=== PATIENT | female | born 1950 | race Caucasian/White ===

== ENCOUNTER 2018-11-18 00:16 | Emergency (ER) | payer OTHER, MEDICARE ==
[~2018-11-18] VITALS: Ht 157.5 cm; Wt 71.2 kg
[~2018-11-18 00:16] MED LIST: ASPIRIN81 MG PO; CRESTOR10 MG PO; FARXIGA PO; GLYBURIDE-METF1 EAC3 PO; LYRICA25 MG PO; LYRICA75 MG PO; METFORMIN HCL500 MG PO; METFORMIN HYDR500 GM; METOPROLOL SUCC25 MG PO; Rosuvastatin Calcium PO; VICTOZA 2-0.6 MG/0.1; Z.0.CRESTOR20 MG PO; Z.0.CRESTOR5 MG; Z.0.LYRICA200 MG PO; Z.0.LYRICA50 MG; ZOLOFT100 MG PO; ZOLOFT50 MG PO
--- OUTSIDE RECORDS SUMMARY | 2018-11-18 00:19 | XMS REPORT | Continuity of Care Document ---
Author Author [facility] Interface Address Unknown Phone Unavailable Problems Problem Status Onset Date Classification Date Reported Comments Source DM w/o complication type II, uncontrolled Active Problem 09/21/2018 [facility] Hyperlipidemia Active Diagnosis 07/26/2017 [facility] History of [place] Active Problem 09/21/2018 [facility] Thrombocytopenia Active Problem 09/21/2018 [facility] Coronary artery disease involving tangirnaq coronary artery of tangirnaq heart, angina presence unspecified Active Problem 09/21/2018 [facility] Depression, unspecified depression type Active Problem 09/21/2018 [facility] Diabetic polyneuropathy associated with type 2 diabetes mellitus Active Problem 09/21/2018 [facility] Other and unspecified hyperlipidemia Active Problem 09/21/2018 [facility] Type II diabetes mellitus, uncontrolled Active Problem 05/11/2015 [facility] Depression Active Problem 05/11/2015 [facility] History of [place] Active Problem 05/11/2015 [facility] Obesity Active Problem 05/11/2015 [facility] Neuropathy Active Problem 05/11/2015 [facility] CAD Active Problem 05/11/2015 [facility] Asymptomatic postmenopausal estrogen deficiency Active Diagnosis 05/17/2017 [facility] Encntr for general adult medical exam w/o abnormal findings Active Diagnosis 05/17/2017 [facility] Screening for breast cancer Active Diagnosis 05/17/2017 [facility] Abnormal urine color Active Diagnosis 10/07/2016 [facility] Left shoulder pain, unspecified chronicity Active Diagnosis 10/07/2016 [facility] Dupuytren contracture Active Problem 09/21/2018 [facility] UTI symptoms Active Diagnosis 08/30/2018 [facility] Vaginal yeast infection Active Diagnosis 08/30/2018 [facility] Medications Medication Details Route Status Patient Instructions Ordering Provider Order Date Source Victoza as directed Subcutaneous Active 18 MG/3ML Subcutaneous begin 0.6 mg SC once daily x 2 weeks, 1.2 mg SC QD x 2 weeks [place] 09/28/2018 [facility] Metronidazole 1 tablet Orally Active 500 mg Orally Twice a day Travon 09/10/2018 [facility] Diflucan 1 tablet Orally Active 150 MG Orally QD x 1 repeat in 2-3 days if symptoms persist [place] 08/29/2018 [facility] Zoloft 1 tablet by mouth Active 100 MG by mouth Once a day Travon 12/03/2017 [facility] Victoza 1.8 mg Subcutaneous Active 18 MG/3ML Subcutaneous Once a day Augustina 11/11/2017 [facility] Victoza 1.8 mg Subcutaneous Active 18 MG/3ML Subcutaneous Once a day [place] 08/23/2017 [facility] Bactrim DS 1 tablet Orally Active 800-160 MG Orally Twice a day [place] 10/05/2016 [facility] Victoza 1.8 ml Subcutaneous Active 18 MG/3ML Subcutaneous Once a day [place] 06/27/2015 [facility] Victoza 1.8 ml Subcutaneous Active 18 MG/3ML Subcutaneous Once a day Ghebranious 06/09/2015 [facility] Farxiga 1 tablet Orally Active 5 MG Orally Once a day [facility] 03/29/2015 [facility] Victoza 0.2 ml Subcutaneous Active 18 MG/3ML Subcutaneous Once a day [facility] 03/23/2015 [facility] Viibryd as directed Orally Active 10 & 20 & 40 MG Orally [place] 12/23/2014 [facility] BD Pen Needle Rachelle U/F as directed SQ Active 32G X 4 MM SQ once a day [place] 12/23/2014 [facility] BD Pen Needle Rachelle U/F as directed SQ Active 32G X 4 MM SQ once a day [place] 12/23/2014 [facility] Viibryd as directed Orally Active 10 & 20 & 40 MG Orally [place] 12/23/2014 [facility] Pantoprazole Sodium 1 tablet Orally Active 40 mg Orally Once a day [place] 04/25/2013 [facility] Metoprolol Succinate ER 1 tablet Orally Active 25 MG Orally Once a day [facility] Lisinopril 1 tablet Orally Active 2.5 MG Orally Once a day [facility] Clopidogrel Bisulfate 1 tablet Orally Active 75 mg Orally Once a day [facility] Crestor take 1 tablet by mouth every day Orally Active 20 Milligram Orally Once a day [facility] Lyrica 1 capsule Orally Active 200 MG Orally three times a day (tid) [facility] Zoloft 2 tablets Orally Active 50 mg Orally Once a day [facility] Lyrica 1 capsule Orally Active 200 MG Orally three times a day (tid) [facility] Metformin HCl 1 tablet Orally Active 500 mg Orally twice a day [facility] Aspir-81 1 tablet Orally Active 81 MG Orally Once a day [facility] Paroxetine HCl 1 tablet in the morning Orally Active 10 MG Orally Once a day [facility] Folic Acid 1 tablet Orally Active 400 MCG Orally Once a day [facility] Vitamin D 1 tablet Orally Active 1000 UNIT Orally Once a day [facility] Zoloft 1 tablet Orally Active 100 MG Orally once a day [facility] Metoprolol Succinate ER 1 tablet Orally Active 25 MG Orally Once a day [facility] Folic Acid 1 tablet Orally Active 400 MCG Orally Once a day [facility] Clopidogrel Bisulfate 1 tablet Orally Active 75 MG Orally Once a day [facility] Vitamin D 1 tablet Orally Active 1000 UNIT Orally Once a day [facility] Paroxetine HCl 1 tablet in the morning Orally Active 10 MG Orally Once a day [facility] Aspir-81 1 tablet Orally Active 81 MG Orally Once a day [facility] Zoloft 1 tablet Orally Active 50 MG Orally 1 tablet PO QD x 1 week, increase to 2 tablet PO QD x 3 week [facility] Lisinopril 1 tablet Orally Active 2.5 MG Orally Once a day [facility] Metformin HCl 1 tablet Orally Active 500 mg Orally twice a day Travon [facility] Victoza 1.8 mg Subcutaneous Active 18 MG/3ML Subcutaneous Once a day Travon [facility] Lisinopril 1 tablet Orally Active 5 MG Orally Once a day Ari [facility] Paxil 1 tablet in the morning Orally No Longer Active 10 MG Orally Once a day Ari [facility] Aspirin EC TAKE 1 TABLET BY MOUTH DAILY NA Active 325 MG Ari [facility] Glyburide-Metformin 2 tablet with a meal Orally Active 5-500 MG Orally daily am Ari [facility] Atenolol TAKE 1 TABLET BY MOUTH DAILY NA Active 25 mg Ari [facility] Farxiga 1 tablet Orally Active 5 MG Orally Once a day Ari [facility] Metoprolol Succinate ER take 1 tablet by mouth every day NA Active 25 MG Travon [facility] Allergies, Adverse Reactions, Alerts Substance Category Reaction Severity Reaction type Status Date Reported Comments Source Avelox Adverse Reaction swelling Adverse Reaction Active 08/29/2018 [facility] Immunizations Immunization Date Given Site Status Last Updated Comments Source Results Order Name Results Value Reference Range Date Interpretation Comments Source Vital Signs Vital Sign Value Date Comments Source Weight 145 08/29/2018 [facility] Height 62 08/29/2018 [facility] Heart Rate 59 08/29/2018 [facility] Diastolic (mm Hg) 64 08/29/2018 [facility] Systolic (mm Hg) 112 08/29/2018 [facility] Diastolic (mm Hg) 68 05/15/2017 [facility] Systolic (mm Hg) 118 05/15/2017 [facility] Height 62 05/15/2017 [facility] Heart Rate 60 05/15/2017 [facility] Weight 167 10/05/2016 [facility] Height 62 10/05/2016 [facility] Heart Rate 66 10/05/2016 [facility] Diastolic (mm Hg) 60 10/05/2016 [facility] Systolic (mm Hg) 100 10/05/2016 [facility] Weight 162 12/23/2014 [facility] Height 62 12/23/2014 [facility] Heart Rate 66 12/23/2014 [facility] Diastolic (mm Hg) 70 12/23/2014 [facility] Systolic (mm Hg) 110 12/23/2014 [facility] Encounters Location Location Details Encounter Type Encounter Number Reason For Visit Attending Provider ADM Date DC Date Status Source [facility] mood swing/depression [id number] 07/07/2014 07/07/2014 [facility] mood swing/depression [id number] 07/07/2014 07/07/2014 [facility] mood swing/depression [id number] 07/07/2014 07/07/2014 [facility] mood swing/depression [id number] 07/07/2014 07/07/2014 [facility] mood swing/depression [id number] 07/07/2014 07/07/2014 [facility] mood swing/depression [id number] 07/07/2014 07/07/2014 [facility] mood swing/depression [id number] 07/07/2014 07/07/2014 [facility] Refill [id number] 12/14/2014 12/14/2014 [facility] Refill [id number] 12/14/2014 12/14/2014 [facility] Refill [id number] 12/14/2014 12/14/2014 [facility] Refill [id number] 12/14/2014 12/14/2014 [facility] Refill [id number] 12/14/2014 12/14/2014 [facility] Refill [id number] 12/14/2014 12/14/2014 [facility] Refill [id number] 12/14/2014 12/14/2014 [facility] DISCUSS MEDICATION [id number] 12/23/2014 12/23/2014 [facility] DISCUSS MEDICATION [id number] 12/23/2014 12/23/2014 [facility] DISCUSS MEDICATION [id number] 12/23/2014 12/23/2014 [facility] DISCUSS MEDICATION [id number] 12/23/2014 12/23/2014 [facility] DISCUSS MEDICATION [id number] 12/23/2014 12/23/2014 [facility] DISCUSS MEDICATION [id number] 12/23/2014 12/23/2014 [facility] Needs call back from Medical Staff [id number] 12/29/2014 12/29/2014 [facility] Needs call back from Medical Staff [id number] 12/29/2014 12/29/2014 [facility] Needs call back from Medical Staff [id number] 12/29/2014 12/29/2014 [facility] Needs call back from Medical Staff [id number] 12/29/2014 12/29/2014 [facility] Needs call back from Medical Staff [id number] 12/29/2014 12/29/2014 [facility] Needs call back from Medical Staff [id number] 12/29/2014 12/29/2014 [facility] Prio Authorization Crestor [id number] 12/29/2014 12/29/2014 [facility] Prio Authorization Crestor [id number] 12/29/2014 12/29/2014 [facility] Prio Authorization Crestor [id number] 12/29/2014 12/29/2014 [facility] Unknown [id number] 01/20/2015 01/20/2015 [facility] Unknown [id number] 01/20/2015 01/20/2015 [facility] Unknown [id number] 01/20/2015 01/20/2015 [facility] Unknown [id number] 01/20/2015 01/20/2015 [facility] Unknown [id number] 02/16/2015 02/16/2015 [facility] Unknown [id number] 02/16/2015 02/16/2015 [facility] Unknown [id number] 02/16/2015 02/16/2015 [facility] Unknown [id number] 02/17/2015 02/17/2015 [facility] Unknown [id number] 02/17/2015 02/17/2015 [facility] Unknown [id number] 02/17/2015 02/17/2015 [facility] Refill [id number] 04/15/2015 04/15/2015 [facility] Refill [id number] 04/15/2015 04/15/2015 [facility] Refill [id number] 04/15/2015 04/15/2015 [facility] Unknown [id number] 05/10/2015 05/10/2015 [facility] Unknown [id number] 05/10/2015 05/10/2015 [facility] REFILL [id number] 07/19/2016 07/19/2016 [facility] Procedures Procedure Code Date Perfomer Comments Source
--- OUTSIDE RECORDS SUMMARY | 2018-11-18 00:20 | XMS REPORT ---
Author Author Kaelyn Cool [facility] eClinicalWorks Address Unknown Phone Unavailable Care Team Providers Care Cell Preparer Name Role Phone Kaelyn Cool CP Unavailable Allergies No Known Allergies Problems Problem Type Condition Code Onset Dates Condition Status Assessment Depression, unspecified depression type F32.9 Active Problem History of [place] (myocardial infarction) I25.2 Active Problem DM w/o complication type II, uncontrolled E11.65 Active Problem Thrombocytopenia D69.6 Active Problem Coronary artery disease involving yuhaaviatam coronary artery of yuhaaviatam heart, angina presence unspecified I25.10 Active Problem Depression, unspecified depression type F32.9 Active Problem Diabetic polyneuropathy associated with type 2 diabetes mellitus E11.42 Active Problem Other and unspecified hyperlipidemia E78.5 Active Medications Medication Code System Code Instructions Start Date End Date Status Dosage Zoloft [facility] 23365960480 50 mg Orally Once a day Active 2 tablets Results No Known Results Summary Purpose eClinicalWorks Submission
--- OUTSIDE RECORDS SUMMARY | 2018-11-18 00:20 | XMS REPORT ---
Author Author Kaelyn Cool [facility] eClinicalWorks Address Unknown Phone Unavailable Care Team Providers Care Residential Supervisor Name Role Phone Kaelyn Cool CP Unavailable Allergies, Adverse Reactions, Alerts Substance Reaction Event Type Avelox swelling Drug Allergy Problems Problem Type Condition Code Onset Dates Condition Status Assessment UTI symptoms R39.9 Active Problem Depression, unspecified depression type F32.9 Active Assessment DM w/o complication type II, uncontrolled E11.65 Active Assessment Coronary artery disease involving rampart coronary artery of rampart heart, angina presence unspecified I25.10 Active Assessment Dupuytren contracture M72.0 Active Assessment Vaginal yeast infection B37.3 Active Problem Thrombocytopenia D69.6 Active Problem History of [place] (myocardial infarction) I25.2 Active Problem Dupuytren contracture M72.0 Active Problem Other and unspecified hyperlipidemia E78.5 Active Problem Coronary artery disease involving rampart coronary artery of rampart heart, angina presence unspecified I25.10 Active Problem DM w/o complication type II, uncontrolled E11.65 Active Problem Diabetic polyneuropathy associated with type 2 diabetes mellitus E11.42 Active Medications Medication Code System Code Instructions Start Date End Date Status Dosage Aspir-81 [facility] [address]-69 81 MG Orally Once a day Active 1 tablet Zoloft [facility] 03254753355 100 MG by mouth Once a day December 03, 2017 Active 1 tablet Paroxetine HCl [facility] 43889822150 10 MG Orally Once a day Active 1 tablet in the morning Lyrica [facility] 59070297474 200 MG Orally three times a day (tid) Active 1 capsule Crestor [facility] [address]-17 20 Milligram Orally Once a day Active take 1 tablet by mouth every day Clopidogrel Bisulfate [facility] 66291387739 75 mg Orally Once a day Active 1 tablet Victoza [facility] 77924093609 18 MG/3ML Subcutaneous begin 0.6 mg SC once daily x 2 weeks, 1.2 mg SC QD x 2 weeks September 28, 2018 Active as directed BD Pen Needle Rachelle U/F [facility] 30987994141 32G X 4 MM SQ once a day December 23, 2014 Active as directed Diflucan [facility] 55283367665 150 MG Orally QD x 1 repeat in 2-3 days if symptoms persist August 29, 2018 September 01, 2018 Active 1 tablet Vitamin D [facility] 82380721143 1000 UNIT Orally Once a day Active 1 tablet Viibryd [facility] 56986805107 10 & 20 & 40 MG Orally December 23, 2014 Active as directed Metoprolol Succinate ER [facility] 27740117320 25 MG Active take 1 tablet by mouth every day Metformin HCl [facility] 96099220671 500 mg Orally twice a day Active 1 tablet Lisinopril [facility] 81843197272 2.5 MG Orally Once a day Active 1 tablet Folic Acid [facility] 38997865484 400 MCG Orally Once a day Active 1 tablet Vital Signs Date/Time: August 29, 2018 BMI 26.52 Index Weight 145 lbs Height 62 in Cardiac Monitoring Heart Rate 59 /min Blood Pressure Diastolic 64 mm Hg Blood Pressure Systolic 112 mm Hg Results No Known Results Summary Purpose eClinicalWorks Submission
--- OUTSIDE RECORDS SUMMARY | 2018-11-18 00:20 | XMS REPORT ---
Author Author Cheyenne Chapman Organization eClinicalWorks Address Unknown Phone Unavailable Care Team Providers Care Optometrist President/Practice Owner Name Role Phone Cheyenne Chapman Unavailable Encounters Encounter Location Date mood swing/depression [facility] Jul 07, 2014 Refill [facility] December 14, 2014 Problems Problem Type Condition ICD-9 Code Onset Dates Condition Status Problem Hyperlipidemia 272.4 Active Problem Type II diabetes mellitus, uncontrolled 250.02 Active Problem Depression 311 Active Problem History of [place] (myocardial infarction) 412 Active Problem Obesity 278.00 Active Problem Neuropathy 355.9 Active Problem CAD (coronary artery disease) 414.00 Active Medications Medication Code System Code Instructions Start Date End Date Status Dosage Lyrica [facility] [address]-76 200 MG Orally once a day Active 1 capsule Social History Social History Element Qualifiers Date Reported Depression Screening: . negative August 04, 2014 Ethnicity . Status , Is persian your primary language? Yes August 04, 2014 children . 2 August 04, 2014 Tobacco Use: . Are you a: never smoker August 04, 2014 Marital Status: single. August 04, 2014 Do you drink alcohol? . 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
--- OUTSIDE RECORDS SUMMARY | 2018-11-18 00:20 | XMS REPORT ---
Author Author Kaelyn Cool [facility] eClinicalWorks Address Unknown Phone Unavailable Care Team Providers Care Technical Services Rep Name Role Phone Kaelyn Cool CP Unavailable Allergies No Known Allergies Problems Problem Type Condition Code Onset Dates Condition Status Assessment DM w/o complication type II, uncontrolled E11.65 Active Assessment Hyperlipidemia 272.4 Active Problem History of [place] (myocardial infarction) I25.2 Active Problem DM w/o complication type II, uncontrolled E11.65 Active Problem Thrombocytopenia D69.6 Active Problem Coronary artery disease involving [place] coronary artery of [place] heart, angina presence unspecified I25.10 Active Problem Depression, unspecified depression type F32.9 Active Problem Diabetic polyneuropathy associated with type 2 diabetes mellitus E11.42 Active Problem Other and unspecified hyperlipidemia E78.5 Active Medications Medication Code System Code Instructions Start Date End Date Status Dosage Victoza [facility] [address]-55 18 MG/3ML Subcutaneous Once a day August 23, 2017 Active 1.8 mg Metoprolol Succinate ER [facility] 96385700025 25 MG Orally Once a day Active 1 tablet Lisinopril [facility] 79008995065 2.5 MG Orally Once a day Active 1 tablet Clopidogrel Bisulfate [facility] 34684013913 75 mg Orally Once a day Active 1 tablet Crestor [facility] [address]-46 20 Milligram Orally Once a day Active take 1 tablet by mouth every day Results No Known Results Summary Purpose eClinicalWorks Submission
--- OUTSIDE RECORDS SUMMARY | 2018-11-18 00:20 | XMS REPORT ---
Author Author Lyndsey Jackman [facility] eClinicalWorks Address Unknown Phone Unavailable Care Team Providers Care Mexican Food Cook Name Role Phone Lyndsey Jackman Unavailable Allergies, Adverse Reactions, Alerts Substance Reaction Event Type Avelox swelling Drug Allergy Problems Problem Type Condition Code Onset Dates Condition Status Assessment Asymptomatic postmenopausal estrogen deficiency Z78.0 Active Assessment Encntr for general adult medical exam w/o abnormal findings Z00.00 Active Assessment Screening for breast cancer Z12.39 Active Problem History of [place] (myocardial infarction) I25.2 Active Problem DM w/o complication type II, uncontrolled E11.65 Active Problem Thrombocytopenia D69.6 Active Problem Coronary artery disease involving [place] coronary artery of [place] heart, angina presence unspecified I25.10 Active Problem Depression, unspecified depression type F32.9 Active Problem Diabetic polyneuropathy associated with type 2 diabetes mellitus E11.42 Active Problem Other and unspecified hyperlipidemia E78.5 Active Assessment Depression, unspecified depression type F32.9 Active Assessment Coronary artery disease involving [place] coronary artery of [place] heart, angina presence unspecified I25.10 Active Assessment Other and unspecified hyperlipidemia E78.5 Active Assessment DM w/o complication type II, uncontrolled E11.65 Active Medications Medication Code System Code Instructions Start Date End Date Status Dosage Metformin HCl ND 76863347385 500 mg Orally twice a day Active 1 tablet Aspir-81 [facility] 69947444213 81 MG Orally Once a day Active 1 tablet Metoprolol Succinate ER ND 32431587130 25 MG Orally Once a day Active 1 tablet Lisinopril ND 11788186385 2.5 MG Orally Once a day Active 1 tablet Paroxetine HCl ND 87055399635 10 MG Orally Once a day Active 1 tablet in the morning Viibryd [facility] 66087052981 10 & 20 & 40 MG Orally December 23, 2014 Active as directed Folic Acid [facility] 79923684152 400 MCG Orally Once a day Active 1 tablet BD Pen Needle Rachelle U/F [facility] 02375398690 32G X 4 MM SQ once a day December 23, 2014 Active as directed Crestor [facility] [address]-31 20 Milligram Orally Once a day Active take 1 tablet by mouth every day Clopidogrel Bisulfate [facility] 57496012133 75 MG Orally Once a day Active 1 tablet Vitamin D [facility] 13228123701 1000 UNIT Orally Once a day Active 1 tablet Zoloft [facility] 90093973894 100 MG Orally once a day Active 1 tablet Victoza [facility] [address]-93 18 MG/3ML Subcutaneous Once a day November 11, 2017 Active 1.8 mg Lyrica [facility] 46795696567 200 MG Orally three times a day Active 1 capsule Vital Signs Date/Time: May 15, 2017 Blood Pressure Diastolic 68 mm Hg Blood Pressure Systolic 118 mm Hg Height 62 in Cardiac Monitoring Heart Rate 60 /min Results No Known Results Summary Purpose eClinicalWorks Submission
--- OUTSIDE RECORDS SUMMARY | 2018-11-18 00:20 | XMS REPORT ---
Author Author Lyndsey Jackman [facility] eClinicalWorks Address Unknown Phone Unavailable Care Team Providers Care Stitch Burnisher Name Role Phone Lyndsey Jackman Unavailable Allergies No Known Allergies Problems Problem Type Condition Code Onset Dates Condition Status Assessment Diabetic polyneuropathy associated with type 2 diabetes mellitus E11.42 Active Problem History of [place] (myocardial infarction) I25.2 Active Problem DM w/o complication type II, uncontrolled E11.65 Active Problem Thrombocytopenia D69.6 Active Problem Coronary artery disease involving [place] coronary artery of [place] heart, angina presence unspecified I25.10 Active Problem Depression, unspecified depression type F32.9 Active Problem Diabetic polyneuropathy associated with type 2 diabetes mellitus E11.42 Active Problem Other and unspecified hyperlipidemia E78.5 Active Medications Medication Code System Code Instructions Start Date End Date Status Dosage Lyrica [facility] 36920770443 200 MG Orally three times a day (tid) Active 1 capsule Results No Known Results Summary Purpose SpreecastinicalWorks Submission
--- OUTSIDE RECORDS SUMMARY | 2018-11-18 00:20 | XMS REPORT ---
Author Author Cheyenne Chapman Organization eClinicalWorks Address Unknown Phone Unavailable Care Team Providers Care Blue Leather Setter Name Role Phone Cheyenne Chapman CP Unavailable Encounters Encounter Location Date Needs call back from Medical Staff [facility] December 29, 2014 Unknown [facility] Jan 20, 2015 mood swing/depression [facility] Jul 07, 2014 Refill [facility] December 14, 2014 DISCUSS MEDICATION [facility] December 23, 2014 Problems Problem Type Condition ICD-9 Code Onset Dates Condition Status Problem Hyperlipidemia 272.4 Active Problem Type II diabetes mellitus, uncontrolled 250.02 Active Problem Depression 311 Active Problem History of [place] (myocardial infarction) 412 Active Problem Obesity 278.00 Active Problem Neuropathy 355.9 Active Problem CAD (coronary artery disease) 414.00 Active Medications Medication Code System Code Instructions Start Date End Date Status Dosage Lyrica [facility] [address]-58 200 MG Orally once a day Active 1 capsule Social History Social History Element Qualifiers Date Reported Last Bone Density: . never December 23, 2014 Depression Screening: . positive December 23, 2014 Flu Vaccine: . no December 23, 2014 Last Colonoscopy: . never December 23, 2014 Fall Risk: . 2+ in past year w/ injury December 23, 2014 Ethnicity . Status , Is chilean your primary language? Yes December 23, 2014 children . 2 December 23, 2014 Tobacco Use: . Are you a: never smoker December 23, 2014 Marital Status: single. December 23, 2014 Do you drink alcohol? . 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
--- OUTSIDE RECORDS SUMMARY | 2018-11-18 00:20 | XMS REPORT ---
Author Author [facility] Address Unknown Phone Unavailable Care Team Providers Care Online Producer Name Role Phone Oneyda LUTHER Unavailable Unavailable Problems This patient has no known problems. Allergies, Adverse Reactions, Alerts This patient has no known allergies or adverse reactions. Medications This patient has no known medications. Results Test Description Test Time Test Comments Text Results Atomic Results Result Comments CHEST 2 VIEWS [place] [address] Patient Name: VANDANA GILL MR #: [id number] : 1950 Age/Sex: 67/F Req #: [id number] Adm Physician: Ordered by: HALEY LUTHER MD Report #: [id number] Location: ER Room/Bed: Procedure: [id number] DX/CHEST 2 VIEWS Exam Date: 03/06/17 Exam Time: 0600 REPORT STATUS: Signed EXAM: CHEST 2 VIEWS, PA and lateral DATE: 03/06/2017 6:02 AM Time stamp on exam: 0600 hours INDICATION: Bodyaches, nausea and vomiting COMPARISON: AP view of the chest January 12, 2016 FINDINGS: LINES/TUBES: None LUNGS: No consolidations or edema. PLEURA: No effusions or pneumothorax. HEART AND MEDIASTINUM: Normal size and contour. BONES AND SOFT TISSUES: No acute findings. Chronic right proximal clavicular fracture. IMPRESSION: No evidence of pneumonia. Signed by: Dr. Gerard Atkinson M.D. on 03/06/2017 6:46 AM Dictated By: GERARD ATKINSON MD 5 Transcribed By: EDILBERTO on 03/06/17645 COPY TO: HALEY LUTHER MD
--- OUTSIDE RECORDS SUMMARY | 2018-11-18 00:20 | XMS REPORT ---
Author Author Cheyenne Chapman Organization eClinicalWorks Address Unknown Phone Unavailable Care Team Providers Care Heavy Repairer Name Role Phone Cheyenne Chapman CP Unavailable Allergies, Adverse Reactions, Alerts Substance Reaction Event Type Avelox swelling Drug Allergy Encounters Encounter Location Date Needs call back from Medical Staff [facility] December 29, 2014 mood swing/depression [facility] Jul 07, 2014 Refill [facility] December 14, 2014 DISCUSS MEDICATION [facility] December 23, 2014 Problems Problem Type Condition ICD-9 Code Onset Dates Condition Status Assessment Neuropathy 355.9 Active Assessment Hyperlipidemia 272.4 Active Assessment Type II diabetes mellitus, uncontrolled 250.02 Active Problem Hyperlipidemia 272.4 Active Problem Type II diabetes mellitus, uncontrolled 250.02 Active Problem Depression 311 Active Problem History of [place] (myocardial infarction) 412 Active Problem Obesity 278.00 Active Problem Neuropathy 355.9 Active Problem CAD (coronary artery disease) 414.00 Active Assessment Obesity 278.00 Active Assessment Depression 311 Active Assessment CAD (coronary artery disease) 414.00 Active Medications Medication Code System Code Instructions Start Date End Date Status Dosage Metformin HCl [facility] [address]-64 500 mg Orally four times a day (qid) Active 1 tablet with meals [facility] [address]-71 5 MG Orally Once a day Active 1 tablet Paxil [facility] 91926850059 10 MG Orally Once a day Inactive 1 tablet in the morning Viibryd [facility] [address]-04 10 & 20 & 40 MG Orally December 23, 2014 Active as directed BD Pen Needle Rachelle U/F [facility] 8290-728101 32G X 4 MM SQ once a day December 23, 2014 Active as directed Victoza [facility] [address]-32 18 MG/3ML Subcutaneous Once a day Mar 23, 2015 Active 0.2 ml Aspirin EC [facility] [address]-32 325 MG Active TAKE 1 TABLET BY MOUTH DAILY Pantoprazole Sodium [facility] [address]-87 40 mg Orally Once a day Apr 25, 2013 Active 1 tablet Glyburide-Metformin [facility] [address]-45 5-500 MG Orally daily am Active 2 tablet with a meal Lyrica [facility] [address]-04 200 MG Orally once a day Active 1 capsule Atenolol [facility] 52532937774 25 mg Active TAKE 1 TABLET BY MOUTH DAILY Farxiga [facility] [address]-17 5 MG Orally Once a day Active 1 tablet Crestor [facility] [address]-30 20 Milligram Orally Once a day Active take 1 tablet by mouth every day Social History Social History Element Qualifiers Date Reported Last Bone Density: . never December 23, 2014 Depression Screening: . positive December 23, 2014 Flu Vaccine: . no December 23, 2014 Last Colonoscopy: . never December 23, 2014 Fall Risk: . 2+ in past year w/ injury December 23, 2014 Ethnicity . Status , Is khmer your primary language? Yes December 23, 2014 children . 2 December 23, 2014 Tobacco Use: . Are you a: never smoker December 23, 2014 Marital Status: single. December 23, 2014 Do you drink alcohol? . 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
--- OUTSIDE RECORDS SUMMARY | 2018-11-18 00:20 | XMS REPORT ---
Author Kaelyn Benavides [facility] eClinicalWorks Address Unknown Phone Unavailable Care Team Providers Care Stonework Supervisor Name Role Phone Kaelyn Cool CP Unavailable Allergies, Adverse Reactions, Alerts Substance Reaction Event Type Avelox swelling Drug Allergy Problems Problem Type Condition Code Onset Dates Condition Status Assessment DM w/o complication type II, uncontrolled E11.65 Active Assessment Diabetic polyneuropathy associated with type 2 diabetes mellitus E11.42 Active Assessment Depression, unspecified depression type F32.9 Active Problem Depression, unspecified depression type F32.9 Active Problem History of [place] (myocardial infarction) I25.2 Active Problem Thrombocytopenia D69.6 Active Problem Other and unspecified hyperlipidemia E78.5 Active Problem Coronary artery disease involving [place] coronary artery of [place] heart, angina presence unspecified I25.10 Active Problem DM w/o complication type II, uncontrolled E11.65 Active Problem Diabetic polyneuropathy associated with type 2 diabetes mellitus E11.42 Active Assessment Abnormal urine color R39.89 Active Assessment Thrombocytopenia D69.6 Active Assessment Other and unspecified hyperlipidemia E78.5 Active Assessment Left shoulder pain, unspecified chronicity M25.512 Active Assessment Coronary artery disease involving [place] coronary artery of [place] heart, angina presence unspecified I25.10 Active Medications Medication Code System Code Instructions Start Date End Date Status Dosage BD Pen Needle Rachelle U/F [facility] 8290-742085 32G X 4 MM SQ once a day December 23, 2014 Active as directed Metoprolol Succinate ER [facility] [address]-19 25 MG Orally Once a day Active 1 tablet Crestor [facility] [address]-33 20 Milligram Orally Once a day Active take 1 tablet by mouth every day Folic Acid [facility] [address]-65 400 MCG Orally Once a day Active 1 tablet Lyrica [facility] [address]-58 200 MG Orally three times a day (tid) Active 1 capsule Clopidogrel Bisulfate [facility] [address]-94 75 MG Orally Once a day Active 1 tablet Vitamin D [facility] [address]-86 1000 UNIT Orally Once a day Active 1 tablet Paroxetine HCl [facility] [address]-98 10 MG Orally Once a day Active 1 tablet in the morning Aspir-81 [facility] [address]-69 81 MG Orally Once a day Active 1 tablet Zoloft [facility] [address]-78 50 MG Orally 1 tablet PO QD x 1 week, increase to 2 tablet PO QD x 3 week Active 1 tablet Lisinopril [facility] [address]-21 2.5 MG Orally Once a day Active 1 tablet Viibryd [facility] [address]-03 10 & 20 & 40 MG Orally December 23, 2014 Active as directed Bactrim DS [facility] [address]-03 800-160 MG Orally Twice a day October 05, 2016 October 12, 2016 Active 1 tablet Metformin HCl [facility] [address]-86 500 mg Orally twice a day Active 1 tablet Victoza [facility] [address]-13 18 MG/3ML Subcutaneous Once a day Active 1.8 mg Vital Signs Date/Time: October 05, 2016 BMI 30.54 Index Weight 167 lbs Height 62 in Cardiac Monitoring Heart Rate 66 /min Blood Pressure Diastolic 60 mm Hg Blood Pressure Systolic 100 mm Hg Results Name Result Date Reference Range Unit Abnormality Flag URINE AUTO W/O SCOPE ----Spec [place] 1.020 20161005 ----Turbidity cloudy 20161005 ----Glucose 2 or more 2000 20161005 ----Ketones TRACE 20161005 ----Blood TRACE 20161005 ----Bili small 20161005 ----Color dark yellow 20161005 ----pH 5.0 20161005 ----Leuk Est Moderate++ 20161005 ----Nitrite Negative 20161005 ----Urobilinogen 0.2 20161005 ----Protein TRACE 20161005 EKG Summary Purpose eClinicalWorks Submission
--- OUTSIDE RECORDS SUMMARY | 2018-11-18 00:20 | XMS REPORT ---
Author Author Kaelyn Cool [facility] eClinicalWorks Address Unknown Phone Unavailable Care Team Providers Care Folder Gluer Operator Name Role Phone Kaelyn Cool Unavailable Allergies No Known Allergies Problems Problem Type Condition Code Onset Dates Condition Status Problem Depression, unspecified depression type F32.9 Active Problem Thrombocytopenia D69.6 Active Problem History of [place] (myocardial infarction) I25.2 Active Problem Dupuytren contracture M72.0 Active Problem Other and unspecified hyperlipidemia E78.5 Active Problem Coronary artery disease involving [place] coronary artery of [place] heart, angina presence unspecified I25.10 Active Problem DM w/o complication type II, uncontrolled E11.65 Active Problem Diabetic polyneuropathy associated with type 2 diabetes mellitus E11.42 Active Medications Medication Code System Code Instructions Start Date End Date Status Dosage Metronidazole [facility] 04507615261 500 mg Orally Twice a day September 10, 2018 September 17, 2018 Active 1 tablet Results No Known Results Summary Purpose eClinicalWorks Submission
--- OUTSIDE RECORDS SUMMARY | 2018-11-18 00:20 | XMS REPORT ---
Author Author Carina Ramos [facility] eClinicalWorks Address Unknown Phone Unavailable Care Team Providers Care Sales Representative [employer] Name Role Phone Carina Ramos CP Unavailable Encounters Encounter Location Date Needs call back from Medical Staff [facility] December 29, 2014 Unknown [facility] Jan 20, 2015 Prio Authorization Crestor [facility] December 29, 2014 Unknown [facility] Feb 16, 2015 mood swing/depression [facility] Jul 07, 2014 Refill [facility] December 14, 2014 DISCUSS MEDICATION [facility] December 23, 2014 Unknown [facility] Feb 17, 2015 Refill [facility] Apr 15, 2015 Problems Problem Type Condition ICD-9 Code Onset Dates Condition Status Problem Hyperlipidemia 272.4 Active Problem Type II diabetes mellitus, uncontrolled 250.02 Active Problem Depression 311 Active Problem History of [place] (myocardial infarction) 412 Active Problem Obesity 278.00 Active Problem Neuropathy 355.9 Active Problem CAD (coronary artery disease) 414.00 Active Medications Medication Code System Code Instructions Start Date End Date Status Dosage Lyrica [facility] [address]-89 200 MG Orally once a day Active 1 capsule Social History Social History Element Qualifiers Date Reported Last Bone Density: . never Mar 22, 2015 Depression Screening: . positive Mar 22, 2015 Flu Vaccine: . no Mar 22, 2015 Last Colonoscopy: . never Mar 22, 2015 Fall Risk: . 2+ in past year w/ injury Mar 22, 2015 Ethnicity . Status , Is moldovan your primary language? Yes Mar 22, 2015 children . 2 Mar 22, 2015 Tobacco Use: . Are you a: never smoker Mar 22, 2015 Marital Status: single. Mar 22, 2015 Do you drink alcohol? . 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
--- OUTSIDE RECORDS SUMMARY | 2018-11-18 00:20 | XMS REPORT ---
Author Author Cheyenne Chapman Organization eClinicalWorks Address Unknown Phone Unavailable Care Team Providers Care Veterinary Practitioner Name Role Phone Cheyenne Chapman CP Unavailable Encounters Encounter Location Date Needs call back from Medical Staff [facility] December 29, 2014 mood swing/depression [facility] Jul 07, 2014 Refill [facility] December 14, 2014 DISCUSS MEDICATION [facility] December 23, 2014 Problems Problem Type Condition ICD-9 Code Onset Dates Condition Status Problem Hyperlipidemia 272.4 Active Problem Type II diabetes mellitus, uncontrolled 250.02 Active Problem Depression 311 Active Problem History of [place] (myocardial infarction) 412 Active Problem Obesity 278.00 Active Problem Neuropathy 355.9 Active Problem CAD (coronary artery disease) 414.00 Active Medications Medication Code System Code Instructions Start Date End Date Status Dosage Farxiga [facility] [address]-20 5 MG Orally Once a day Mar 29, 2015 Active 1 tablet Victoza [facility] [address]-93 18 MG/3ML Subcutaneous Once a day Jun 27, 2015 Active 1.8 ml Social History Social History Element Qualifiers Date Reported Last Bone Density: . never December 23, 2014 Depression Screening: . positive December 23, 2014 Flu Vaccine: . no December 23, 2014 Last Colonoscopy: . never December 23, 2014 Fall Risk: . 2+ in past year w/ injury December 23, 2014 Ethnicity . Status , Is south korean your primary language? Yes December 23, 2014 children . 2 December 23, 2014 Tobacco Use: . Are you a: never smoker December 23, 2014 Marital Status: single. December 23, 2014 Do you drink alcohol? . 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
--- OUTSIDE RECORDS SUMMARY | 2018-11-18 00:20 | XMS REPORT ---
Author Author Cece Scott [facility] eClinicalWorks Address Unknown Phone Unavailable Care Team Providers Care Scheduling Representative Name Role Phone Cece Scott Unavailable Encounters Encounter Location Date Needs call back from Medical Staff [facility] December 29, 2014 Unknown [facility] Jan 20, 2015 Prio Authorization Crestor [facility] December 29, 2014 Unknown [facility] Feb 16, 2015 mood swing/depression [facility] Jul 07, 2014 REFILL [facility] Jul 19, 2016 Refill [facility] December 14, 2014 DISCUSS MEDICATION [facility] December 23, 2014 Unknown [facility] May 10, 2015 Unknown [facility] Feb 17, 2015 Refill [facility] Apr 15, 2015 Problems Problem Type Condition ICD-9 Code Onset Dates Condition Status Problem History of [place] (myocardial infarction) I25.2 Active Problem DM w/o complication type II, uncontrolled E11.65 Active Problem Depression, unspecified depression type F32.9 Active Problem Coronary artery disease involving mi'kmaq coronary artery of mi'kmaq heart, angina presence unspecified I25.10 Active Problem Diabetic polyneuropathy associated with type 2 diabetes mellitus E11.42 Active Problem Other and unspecified hyperlipidemia E78.5 Active Social History Social History Element Qualifiers Date Reported Last Bone Density: . never Mar 22, 2015 Depression Screening: . positive Mar 22, 2015 Flu Vaccine: . no Mar 22, 2015 Last Colonoscopy: . never Mar 22, 2015 Fall Risk: . 2+ in past year w/ injury Mar 22, 2015 Ethnicity . Status , Is rwandan your primary language? Yes Mar 22, 2015 children . 2 Mar 22, 2015 Tobacco Use: . Are you a: never smoker Mar 22, 2015 Marital Status: single. Mar 22, 2015 Do you drink alcohol? . 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
--- OUTSIDE RECORDS SUMMARY | 2018-11-18 00:20 | XMS REPORT ---
Author Author Carina Ramos [facility] eClinicalWorks Address Unknown Phone Unavailable Care Team Providers Care Painter Mirror Name Role Phone Carina Ramos Unavailable Encounters Encounter Location Date Needs call back from Medical Staff [facility] December 29, 2014 Unknown [facility] Jan 20, 2015 Prio Authorization Crestor [facility] December 29, 2014 Unknown [facility] Feb 16, 2015 mood swing/depression [facility] Jul 07, 2014 Refill [facility] December 14, 2014 DISCUSS MEDICATION [facility] December 23, 2014 Unknown [facility] May 10, 2015 Unknown [facility] Feb 17, 2015 Refill [facility] Apr 15, 2015 Problems Problem Type Condition ICD-9 Code Onset Dates Condition Status Problem Hyperlipidemia 272.4 Active Problem Type II diabetes mellitus, uncontrolled 250.02 Active Problem Depression 311 Active Problem History of [place] (myocardial infarction) 412 Active Problem Obesity 278.00 Active Problem Neuropathy 355.9 Active Problem CAD (coronary artery disease) 414.00 Active Medications Medication Code System Code Instructions Start Date End Date Status Dosage Victoza MEDISPAN [address]-91 18 MG/3ML Subcutaneous Once a day Jun 09, 2015 Active 1.8 ml Lyrica MEDISPAN [address]-52 200 MG Orally once a day Active 1 capsule [facility] [address]-49 500 mg Orally four times a day (qid) Active 1 tablet with meals Social History Social History Element Qualifiers Date Reported Last Bone Density: . never Mar 22, 2015 Depression Screening: . positive Mar 22, 2015 Flu Vaccine: . no Mar 22, 2015 Last Colonoscopy: . never Mar 22, 2015 Fall Risk: . 2+ in past year w/ injury Mar 22, 2015 Ethnicity . Status , Is slovak your primary language? Yes Mar 22, 2015 children . 2 Mar 22, 2015 Tobacco Use: . Are you a: never smoker Mar 22, 2015 Marital Status: single. Mar 22, 2015 Do you drink alcohol? . 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
[2018-11-18 00:40] LABS: BASOPHILS # (AUTO) 0.1 (0.0-0.1); BASOPHILS % 0.7 % (0.0-1.0); EOSINOPHILS # (AUTO) 0.1 (0.0-0.4); EOSINOPHILS % 2.1 % (0.0-6.0); HEMATOCRIT 35.2 % (34.2-44.1); HEMOGLOBIN 13.3 g/dL (12.0-16.0); LYMPHOCYTES # (AUTO) 2.4 (1.0-3.2); LYMPHOCYTES % 35.8 % (18.0-39.1); MEAN CORPUSCULAR HEMOGLOBIN 31.9 pg (28-32); MEAN CORPUSCULAR HGB CONC 37.8 g/dL (31-35); MEAN CORPUSCULAR VOLUME 84.4 fL (81-99); MONOCYTES # (AUTO) 0.5 (0.2-0.8); MONOCYTES % 7.4 % (4.4-11.3); NEUTROPHILS # (AUTO) 3.7 (2.1-6.9); NEUTROPHILS % 53.9 % (38.7-80.0); PLATELET COUNT 143 x10e3/uL (140-360); RED BLOOD COUNT 4.17 x10e6/uL (3.6-5.1); RED CELL DISTRIBUTION WIDTH 11.6 % (11.7-14.4)
[2018-11-18 00:44] LABS: INR 0.91; PROTHROMBIN TIME 12.7 seconds (11.9-14.5)
[2018-11-18 00:45] LABS: PARTIAL THROMBOPLASTIN TIME 27.5 seconds (23.8-35.5)
[2018-11-18 00:54] LABS: ALANINE AMINOTRANSFERASE 20 IU/L (0-55); ALBUMIN/GLOBULIN RATIO 1.6 (0.8-2.0); ALKALINE PHOSPHATASE 86 IU/L (40-150); ANION GAP 14.7 mmol/L (8-16); BLOOD UREA NITROGEN 13 mg/dL (7-26); BUN/CREATININE RATIO 16 (6-25); CALCIUM 9.6 mg/dL (8.4-10.2); CARBON DIOXIDE 26 mmol/L (22-29); CHLORIDE 99 mmol/L (98-107); CREATININE, SERUM 0.82 mg/dL (0.57-1.11); EST GLOMERULAR FILTRATION RATE > 60 ML/MIN (60-); POTASSIUM 3.7 mmol/L (3.5-5.1); SODIUM 136 mmol/L (136-145)
[2018-11-18 00:56] LABS: GLUCOSE 517 mg/dL (74-118)
[2018-11-18] MEDS ORDERED: SODIUM CHLORIDE 0.9% 1000ML 1,000 ML IV ONE (01:00)
[2018-11-18] MEDS ORDERED: INSULIN REGULAR, HUMAN 100 UNIT/1 ML 3ML VIAL SQ ONE (01:00)
[2018-11-18] MEDS ORDERED: PLAVIX75 MG PO (01:42)
[2018-11-18] MEDS ORDERED: SODIUM CHLORIDE 0.9% 50ML 50 ML ONE (02:28)
[2018-11-18] MEDS ORDERED: IOPAMIDOL 370 MG/ML 200 ML INFUS..BTL INJ ONE (02:28)
--- NOTE | 2018-11-18 02:34 | Diagnostic Imaging Report ---
CT SOFT TISSUE NECK W HISTORY: Choking sensation, difficulty swallowing COMPARISON: Report from head CT dated 04/30/2012; report from chest radiograph dated 03/06/2017 TECHNIQUE: Axial CT images were obtained through the neck with intravenous, iodine based contrast. Coronal and sagittal reconstructions obtained from the axial data. One or more of the following dose reduction techniques were used: Automated exposure control, adjustment of the mA and/or kV according to patient size, and/or utilization of iterative reconstruction technique. 100 mL of Isovue-370 were administered. DISCUSSION: Approximately 1.3 cm polypoid mucosal lesion along the left paramedian tongue base bulges into the left valleculae. The visualized upper aerodigestive tract is otherwise unremarkable. A few mildly prominent, mildly heterogeneous right upper jugular chain lymph nodes are present, measuring up to 1.6 cm in size. No other radiographically significant cervical adenopathy is seen. There are a few subcentimeter hypodense nodules in the bilateral thyroid lobes. The submandibular and parotid glands are unremarkable. The major cervical vessels are unremarkable. The resident care spec, parapharyngeal, posterior cervical, and perivertebral spaces are unremarkable. The visualized intracranial compartment and orbits are grossly unremarkable. Mild bilateral maxillary sinus mucosal thickening is present. There are mild to moderate degenerative changes throughout the spine. Please refer to concurrent chest CT for intrathoracic findings. Old, unhealed right clavicle fracture is present. IMPRESSION: 1. Nonspecific 1.3 cm polypoid mucosal lesion at the left tongue base bulges into the left vallecula. Recommend correlation with direct visualization/inspection. 2. Associated mild right upper jugular chain lymphadenopathy (level 2A). 3. Otherwise, the visualized upper aerodigestive tract is unremarkable. No other radiographically significant cervical adenopathy. Signed by: Dr. Reji Fernandes M.D. on 11/18/2018 2:31 AM
--- NOTE | 2018-11-18 02:45 | Diagnostic Imaging Report ---
EXAM: CT Chest WITH contrast 11/18/2018 12:23 AM INDICATION: Pain. Sensation of choking. COMPARISON: None TECHNIQUE: Chest was scanned utilizing a multidetector helical scanner from the lung apex through the level of the adrenal glands without administration of IV contrast. Coronal and sagittal reformations were obtained. Routine protocol was performed. IV CONTRAST: 100 cc Isovue-300 RADIATION DOSE: Total DLP: 549.13 mGy*cm Estimated effective dose: (DLP x 0.014 x size factor) mSv COMPLICATIONS: None FINDINGS: LINES/ TUBES: None. LUNGS AND AIRWAYS: Calcified granuloma in the posterior right lower lobe. Bibasilar dependent atelectasis. Airways are normal. PLEURA: The pleural spaces are clear. HEART AND MEDIASTINUM: The thyroid gland is normal. No mediastinal, hilar or axillary lymphadenopathy. The heart is normal in size.. There is no pericardial effusion. There is mild diffuse wall thickening of the esophagus which is a nonspecific finding, however, may reflect esophagitis. There is a small hiatal hernia. Multivessel coronary artery calcifications. Prominent aortic root measuring 4.5 cm in diameter. UPPER ABDOMEN: Limited non-contrast views of the upper abdomen show a 1.1 cm low-attenuation lesion in the upper pole of the right kidney on image 14 series 4 and 8 mm low-attenuation lesion in the upper pole of the right kidney on image 17 which demonstrate above than water attenuation possibly hyperdense cyst not completely evaluated with this examination. The liver is mildly lobulated in contour with a recanalized umbilical vein. The main portal vein measures 1.5 cm in diameter. Collateral vessels in the upper abdomen. Atherosclerotic calcifications of the abdominal aorta including the origin of the renal arteries. Adrenal glands are normal. BONES: There are degenerative changes in the thoracic spine. SOFT TISSUES: Unremarkable. IMPRESSION: 1. Findings may reflect esophagitis. Recommend further evaluation with endoscopy. A barium swallow could be obtained initially which would also evaluate for gastroesophageal reflux. 2. Small low-attenuation lesions in the upper pole of the right kidney not completely evaluated, possibly hyperdense cysts. Suggest further evaluation with nonemergent ultrasound of kidneys. Signed by: Dr. Christine Castro M.D. on 11/18/2018 2:42 AM
== END 2018-11-18 03:03 | disposition home or self-care (01) ==
LOC: ER 00:16
DX: K21.0 Gastro-esophageal reflux disease with esophagitis (principal); I10 Essential (primary) hypertension; E11.9 Type 2 diabetes mellitus without complications; I25.10 Atherosclerotic heart disease of native coronary artery without angina pectoris; I25.2 Old myocardial infarction
CPT/HCPCS: 36415; 70491; 71260; 80053; 82948; 85025; 85610; 85730; 96372; 99284; J1817; J7030; Q9967

== ENCOUNTER → 2019-01-14 | Day surgery (SDC) | payer OTHER, MEDICARE ==
[2019-01-10 15:57] LABS: BASOPHILS # (AUTO) 0.1 (0.0-0.1); BASOPHILS % 0.6 % (0.0-1.0); EOSINOPHILS # (AUTO) 0.1 (0.0-0.4); EOSINOPHILS % 1.6 % (0.0-6.0); HEMATOCRIT 39.5 % (34.2-44.1); HEMOGLOBIN 14.7 g/dL (12.0-16.0); LYMPHOCYTES % 24.3 % (18.0-39.1); MEAN CORPUSCULAR HEMOGLOBIN 31.6 pg (28-32); MEAN CORPUSCULAR HGB CONC 37.2 g/dL (31-35); MEAN CORPUSCULAR VOLUME 84.9 fL (81-99); MONOCYTES # (AUTO) 0.5 (0.2-0.8); MONOCYTES % 5.5 % (4.4-11.3); NEUTROPHILS # (AUTO) 5.5 (2.1-6.9); NEUTROPHILS % 67.6 % (38.7-80.0); PLATELET COUNT 151 x10e3/uL (140-360); RED BLOOD COUNT 4.65 x10e6/uL (3.6-5.1); RED CELL DISTRIBUTION WIDTH 11.9 % (11.7-14.4)
[2019-01-10 16:25] LABS: ALANINE AMINOTRANSFERASE 23 IU/L (0-55); ALBUMIN 4.4 g/dL (3.5-5.0); ALBUMIN/GLOBULIN RATIO 1.7 (0.8-2.0); ALKALINE PHOSPHATASE 88 IU/L (40-150); ANION GAP 15.9 mmol/L (8-16); BLOOD UREA NITROGEN 20 mg/dL (7-26); BUN/CREATININE RATIO 25 (6-25); CALCIUM 9.9 mg/dL (8.4-10.2); CARBON DIOXIDE 27 mmol/L (22-29); CHLORIDE 99 mmol/L (98-107); EST GLOMERULAR FILTRATION RATE > 60 ML/MIN (60-); GLUCOSE 324 mg/dL (74-118); POTASSIUM 3.9 mmol/L (3.5-5.1); SODIUM 138 mmol/L (136-145)
[~2019-01-14] VITALS: Ht 157.5 cm; Wt 64.4 kg
[~2019-01-14] MED LIST changes: +ALPRAZOLAM 0.5 MG TAB ONE; +DIPHENHYDRAMINE HCL 25 MG CAP ONE; +FENTANYL CITRATE/PF 100MCG/2 ML INJ ONE; +HEPARIN SOD/SOD CHLORIDE 2,000 ML ONE; +IOPAMIDOL 370 MG/ML 200 ML INFUS..BTL INJ ONE; +LIDOCAINE HCL 2% LOCAL 20 ML VIAL ONE; +LISINOPRIL2.5 MG PO; +MIDAZOLAM HCL 2 MG/2 ML VIAL ONE; +PANTOPRAZOLE SO40 MG PO; +PLAVIX75 MG PO; +SODIUM CHLORIDE 0.9% 1000ML 1,000 ML ONE; +VERAPAMIL HCL 2.5 MG/ML 2 ML VIAL ONE; -VICTOZA 2-0.6 MG/0.1; +VICTOZA 2-0.6 MG/0.1 SC
--- OUTSIDE RECORDS SUMMARY | 2019-01-14 10:55 | XMS REPORT | Continuity of Care Document ---
Author Author [email or web address] Organization [email or web address] Address Unknown Phone Unavailable Care Team Providers Care Machine Sign Writer Name Role Phone Border Stylo Information Exchange Unavailable Unavailable Problems Problem Status Onset Date Classification Date Reported Comments Source Chest pain Active 01/12/2016 Problem 11/18/2018 [facility] UTI symptoms Active Diagnosis 08/30/2018 [facility] Depression, unspecified depression type Active Problem 09/21/2018 [facility] DM w/o complication type II, uncontrolled Active Problem 09/21/2018 [facility] Coronary artery disease involving [place] coronary artery of [place] heart, angina presence unspecified Active Problem 09/21/2018 [facility] Dupuytren contracture Active Problem 09/21/2018 [facility] Vaginal yeast infection Active Diagnosis 08/30/2018 [facility] Thrombocytopenia Active Problem 09/21/2018 [facility] History of CT Active Problem 09/21/2018 [facility] Other and unspecified hyperlipidemia Active Problem 09/21/2018 [facility] Diabetic polyneuropathy associated with type 2 diabetes mellitus Active Problem 09/21/2018 [facility] Hyperlipidemia Active Diagnosis 07/26/2017 [facility] Type II diabetes mellitus, uncontrolled Active Problem 05/11/2015 [facility] Depression Active Problem 05/11/2015 [facility] History of CT Active Problem 05/11/2015 [facility] Obesity Active Problem 05/11/2015 [facility] Neuropathy Active Problem 05/11/2015 [facility] CAD Active Problem 05/11/2015 [facility] Asymptomatic postmenopausal estrogen deficiency Active Diagnosis 05/17/2017 [facility] Encntr for general adult medical exam w/o abnormal findings Active Diagnosis 05/17/2017 [facility] Screening for breast cancer Active Diagnosis 05/17/2017 [facility] Abnormal urine color Active Diagnosis 10/07/2016 [facility] Left shoulder pain, unspecified chronicity Active Diagnosis 10/07/2016 [facility] Medications Medication Details Route Status Patient Instructions Ordering Provider Order Date Source Farxiga , 5 Mg Oral Daily Active 11/18/2018 [facility] Victoza as directed Subcutaneous Active 18 MG/3ML Subcutaneous begin 0.6 mg SC once daily x 2 weeks, 1.2 mg SC QD x 2 weeks Travon 09/28/2018 [facility] Metronidazole 1 tablet Orally Active 500 mg Orally Twice a day Travon 09/10/2018 [facility] Diflucan 1 tablet Orally Active 150 MG Orally QD x 1 repeat in 2-3 days if symptoms persist Travon 08/29/2018 [facility] Zoloft 1 tablet by mouth Active 100 MG by mouth Once a day Travon 12/03/2017 [facility] Victoza 1.8 mg Subcutaneous Active 18 MG/3ML Subcutaneous Once a day Augustina 11/11/2017 [facility] Victoza 1.8 mg Subcutaneous Active 18 MG/3ML Subcutaneous Once a day Travon 08/23/2017 [facility] Bactrim DS 1 tablet Orally Active 800-160 MG Orally Twice a day Travon 10/05/2016 [facility] Rosuvastatin Calcium 10 Mg Tab Bedtime Active Shiue 01/14/2016 [facility] Rosuvastatin Calcium (Crestor) 10 Mg Tab, 20 Mg Oral Bedtime Active 01/14/2016 [facility] Aspirin 81 Mg Tab.chew, 81 Mg Oral Daily Active 01/12/2016 [facility] Farxiga , 10 Mg Oral Daily Active 01/12/2016 [facility] Glyburide, Micro/Metformin Hcl (Glyburide-Metformin 5/500 Mg) 1 Each Tablet, 2 Tab Oral Twice A Day Active 01/12/2016 [facility] Metformin Hcl 500 Mg Tablet, 500 Mg Oral Twice A Day Active 01/12/2016 [facility] Pregabalin (Lyrica) 200 Mg Capsule, 200 Mg Oral Three Times A Day Active 01/12/2016 [facility] Pregabalin (Lyrica) 75 Mg Cap, 200 Mg Oral Bedtime Active 01/12/2016 [facility] Rosuvastatin Calcium (Crestor) 20 Mg Tablet, 20 Mg Oral Bedtime Active 01/12/2016 [facility] Sertraline Hcl (Zoloft) 100 Mg Tablet, 100 Mg Oral Daily Active 01/12/2016 [facility] Victoza 1.8 ml Subcutaneous Active 18 MG/3ML Subcutaneous Once a day Buntyn 06/27/2015 [facility] Victoza 1.8 ml Subcutaneous Active 18 MG/3ML Subcutaneous Once a day Ghebranious 06/09/2015 [facility] Farxiga 1 tablet Orally Active 5 MG Orally Once a day Bunty 03/29/2015 [facility] Victoza 0.2 ml Subcutaneous Active 18 MG/3ML Subcutaneous Once a day Bunty 03/23/2015 [facility] BD Pen Needle Rachelle U/F as directed SQ Active 32G X 4 MM SQ once a day [place] 12/23/2014 [facility] Viibryd as directed Orally Active 10 & 20 & 40 MG Orally [place] 12/23/2014 [facility] Viibryd as directed Orally Active 10 & 20 & 40 MG Orally [place] 12/23/2014 [facility] BD Pen Needle Rachelle U/F as directed SQ Active 32G X 4 MM SQ once a day [place] 12/23/2014 [facility] Pantoprazole Sodium 1 tablet Orally Active 40 mg Orally Once a day Bunty 04/25/2013 [facility] Metformin Hcl (Metformin Hydrochloride) 500 Gm Crystals, Active 03/17/2012 [facility] Pregabalin (Lyrica) 50 Mg Capsule, Active 03/17/2012 [facility] Rosuvastatin Calcium (Crestor) 5 Mg Tablet, Active 03/17/2012 [facility] Aspir-81 1 tablet Orally Active 81 MG Orally Once a day Travon [facility] Paroxetine HCl 1 tablet in the morning Orally Active 10 MG Orally Once a day [facility] Lyrica 1 capsule Orally Active 200 MG Orally three times a day (tid) Travon [facility] Crestor take 1 tablet by mouth every day Orally Active 20 Milligram Orally Once a day [facility] Clopidogrel Bisulfate 1 tablet Orally Active 75 mg Orally Once a day [facility] Vitamin D 1 tablet Orally Active 1000 UNIT Orally Once a day [facility] Metoprolol Succinate ER take 1 tablet by mouth every day NA Active 25 MG [facility] Metformin HCl 1 tablet Orally Active 500 mg Orally twice a day Travon [facility] Lisinopril 1 tablet Orally Active 2.5 MG Orally Once a day [facility] Folic Acid 1 tablet Orally Active 400 MCG Orally Once a day Travon [facility] Zoloft 2 tablets Orally Active 50 mg Orally Once a day Traovn [facility] Metoprolol Succinate ER 1 tablet Orally Active 25 MG Orally Once a day [facility] Lyrica 1 capsule Orally Active 200 MG Orally three times a day (tid) Travon [facility] Aspir-81 1 tablet Orally Active 81 MG Orally Once a day [facility] Zoloft 1 tablet Orally Active 100 MG Orally once a day [facility] Metformin HCl 1 tablet Orally Active 500 mg Orally twice a day Travon [facility] Lisinopril 1 tablet Orally Active 5 MG Orally Once a day Ari [facility] Paxil 1 tablet in the morning Orally No Longer Active 10 MG Orally Once a day Ari [facility] Aspirin EC TAKE 1 TABLET BY MOUTH DAILY NA Active 325 MG Santinoshimon [facility] Glyburide-Metformin 2 tablet with a meal Orally Active 5-500 MG Orally daily am Ari [facility] Atenolol TAKE 1 TABLET BY MOUTH DAILY NA Active 25 mg Santinoshimon [facility] Farxiga 1 tablet Orally Active 5 MG Orally [facility] Metoprolol Succinate ER 1 tablet Orally Active 25 MG Orally Once a day [facility] Folic Acid 1 tablet Orally Active 400 MCG Orally Once a day [facility] Clopidogrel Bisulfate 1 tablet Orally Active 75 MG Orally Once a day [facility] Vitamin D 1 tablet Orally Active 1000 UNIT Orally Once a day [facility] Paroxetine HCl 1 tablet in the morning Orally Active 10 MG Orally Once a day [facility] Zoloft 1 tablet Orally Active 50 MG Orally 1 tablet PO QD x 1 week, increase to 2 tablet PO QD x 3 week [facility] Lisinopril 1 tablet Orally Active 2.5 MG Orally Once a day [facility] Victoza 1.8 mg Subcutaneous Active 18 MG/3ML Subcutaneous Once a day [facility] Aspirin 81 Mg Tab.chew Daily Active [facility] Clopidogrel Bisulfate (Plavix) 75 Mg Tablet Daily Active [facility] Liraglutide (Victoza 2-Earl) 0.6 Mg/0.1 Ml Pen.injctr Active [facility] Metformin Hcl 500 Mg Tablet Four Times Daily Active [facility] Metoprolol Succinate 25 Mg Tab.er.24h Daily Active [facility] Pregabalin (Lyrica) 25 Mg Cap Bedtime for Active [facility] Sertraline Hcl (Zoloft) 50 Mg Tablet Daily Active [facility] Allergies, Adverse Reactions, Alerts Substance Category Reaction Severity Reaction type Status Date Reported Comments Source Avelox Adverse Reaction swelling Adverse Reaction Active 08/29/2018 [facility] Immunizations No Data Provided for This Section Results Order Name Results Value Reference Range Date Interpretation Comments Source Blood leukocytes automated count (number/volume) 6.79 4.8 - 10.8 11/18/2018 [facility] Blood erythrocytes automated count (number/volume) 4.17 3.6 - 5.1 11/18/2018 [facility] Blood hemoglobin measurement (moles/volume) 13.3 12.0 - 16.0 11/18/2018 [facility] Automated blood hematocrit (volume fraction) 35.2 34.2 - 44.1 11/18/2018 [facility] Automated erythrocyte mean corpuscular volume 84.4 81 - 99 11/18/2018 [facility] Automated erythrocyte mean corpuscular hemoglobin (mass per erythrocyte) 31.9 28 - 32 11/18/2018 [facility] Automated erythrocyte mean corpuscular hemoglobin concentration measurement (mass/volume) 37.8 31 - 35 11/18/2018 [facility] RDW BldCo-Rto 11.6 11.7 - 14.4 11/18/2018 [facility] Automated blood platelet count (count/volume) 143 140 - 360 11/18/2018 [facility] Automated blood segmented neutrophil count as percentage of total leukocytes 53.9 38.7 - 80.0 11/18/2018 [facility] Automated blood lymphocyte count as percentage ot total leukocytes 35.8 18.0 - 39.1 11/18/2018 [facility] Automated blood monocyte count as percentage of total leukocytes 7.4 4.4 - 11.3 11/18/2018 [facility] Automated blood eosinophil count as percentage of total leukocytes 2.1 0.0 - 6.0 11/18/2018 [facility] Automated blood basophil count as percentage of total leukocytes 0.7 0.0 - 1.0 11/18/2018 [facility] IM GRANULOCYTES % 0.1 0.0 - 1.0 11/18/2018 [facility] Automated blood neutrophil count 3.7 2.1 - 6.9 11/18/2018 [facility] Blood lymphocytes count (number/volume) 2.4 1.0 - 3.2 11/18/2018 [facility] Blood monocytes automated count (number/volume) 0.5 0.2 - 0.8 11/18/2018 [facility] Automated blood eosinophil count 0.1 0.0 - 0.4 11/18/2018 [facility] Automated blood basophil count (count/volume) 0.1 0.0 - 0.1 11/18/2018 [facility] Absolute Immature Granulocyte (auto 0.01 0 - 0.1 11/18/2018 [facility] Prothrombin time (PT) in platelet poor plasma by coagulation assay 12.7 11.9 - 14.5 11/18/2018 [facility] INR in Platelet poor plasma by Coagulation assay 0.91 11/18/2018 [facility] Activated partial thromboplastin time (aPTT) in platelet poor plasma bycoagulation assay 27.5 23.8 - 35.5 11/18/2018 [facility] Serum or plasma sodium measurement (moles/volume) 136 136 - 145 11/18/2018 [facility] Serum or plasma potassium measurement (moles/volume) 3.7 3.5 - 5.1 11/18/2018 [facility] Serum or plasma chloride measurement (moles/volume) 99 98 - 107 11/18/2018 [facility] Serum or plasma carbon dioxide, total measurement (moles/volume) 26 22 - 29 11/18/2018 [facility] Serum or plasma anion gap 14.7 8 - 16 11/18/2018 [facility] Serum or plasma urea nitrogen measurement (mass/volume) 13 7 - 26 11/18/2018 [facility] Serum or plasma creatinine measurement (mass/volume) 0.82 0.57 - 1.11 11/18/2018 [facility] Serum or plasma urea nitrogen/creatinine mass ratio 16 6 - 25 11/18/2018 [facility] Estimated glomerular filtration rate (GFR) determination > 60 60 11/18/2018 [facility] Glucose measurement 517 74 - 118 11/18/2018 [facility] Serum or plasma calcium measurement (mass/volume) 9.6 8.4 - 10.2 11/18/2018 [facility] Serum or plasma total bilirubin measurement (mass/volume) 1.1 0.2 - 1.2 11/18/2018 [facility] Aspartate Amino Transf (AST/SGOT) 21 5 - 34 11/18/2018 [facility] Serum or plasma alanine aminotransferase measurement (enzymatic activity/volume) 20 0 - 55 11/18/2018 [facility] Serum or plasma protein measurement (mass/volume) 6.5 6.5 - 8.1 11/18/2018 [facility] Serum or plasma albumin measurement (mass/volume) 4.0 3.5 - 5.0 11/18/2018 [facility] Plasma globulin measurement (mass/volume) 2.5 2.3 - 3.5 11/18/2018 [facility] Serum or plasma albumin/globulin mass ratio 1.6 0.8 - 2.0 11/18/2018 [facility] Serum or plasma alkaline phosphatase measurement (enzymatic activity/volume) 86 40 - 150 11/18/2018 [facility] Pathology Reports No Data Provided for This Section Diagnostic Reports No Data Provided for This Section Consultation Notes No Data Provided for This Section Discharge Summaries No Data Provided for This Section History and Physicals No Data Provided for This Section Vital Signs Vital Sign Value Date Comments Source Weight 145 08/29/2018 [facility] Height 62 08/29/2018 [facility] Weight 162 12/23/2014 [facility] Height 62 12/23/2014 [facility] Heart Rate 66 12/23/2014 [facility] Diastolic (mm Hg) 70 12/23/2014 [facility] Systolic (mm Hg) 110 12/23/2014 [facility] Encounters Location Location Details Encounter Type Encounter Number Reason For Visit Attending Provider ADM Date DC Date Status Source [facility] mood swing/depression [id number] 07/07/2014 07/07/2014 [facility] mood swing/depression [id number] 07/07/2014 07/07/2014 [facility] mood swing/depression [id number] 07/07/2014 07/07/2014 [facility] mood swing/depression [id number] 07/07/2014 07/07/2014 [facility] mood swing/depression [id number] 07/07/2014 07/07/2014 [facility] mood swing/depression [id number] 07/07/2014 07/07/2014 [facility] mood swing/depression [id number] 07/07/2014 07/07/2014 [facility] Refill [id number] 12/14/2014 12/14/2014 [facility] Refill [id number] 12/14/2014 12/14/2014 [facility] Refill [id number] 12/14/2014 12/14/2014 [facility] Refill [id number] 12/14/2014 12/14/2014 [facility] Refill [id number] 12/14/2014 12/14/2014 [facility] Refill [id number] 12/14/2014 12/14/2014 [facility] Refill [id number] 12/14/2014 12/14/2014 [facility] DISCUSS MEDICATION [id number] 12/23/2014 12/23/2014 [facility] DISCUSS MEDICATION [id number] 12/23/2014 12/23/2014 [facility] DISCUSS MEDICATION [id number] 12/23/2014 12/23/2014 [facility] DISCUSS MEDICATION [id number] 12/23/2014 12/23/2014 [facility] DISCUSS MEDICATION [id number] 12/23/2014 12/23/2014 [facility] DISCUSS MEDICATION [id number] 12/23/2014 12/23/2014 [facility] Needs call back from Medical Staff [id number] 12/29/2014 12/29/2014 [facility] Needs call back from Medical Staff [id number] 12/29/2014 12/29/2014 [facility] Needs call back from Medical Staff [id number] 12/29/2014 12/29/2014 [facility] Needs call back from Medical Staff [id number] 12/29/2014 12/29/2014 [facility] Needs call back from Medical Staff [id number] 12/29/2014 12/29/2014 [facility] Needs call back from Medical Staff [id number] 12/29/2014 12/29/2014 [facility] [employer] Authorization Crestor [id number] 12/29/2014 12/29/2014 [facility] Prio Authorization Crestor [id number] 12/29/2014 12/29/2014 [facility] Prio Authorization Crestor [id number] 12/29/2014 12/29/2014 [facility] Unknown [id number] 01/20/2015 01/20/2015 [facility] Unknown [id number] 01/20/2015 01/20/2015 [facility] Unknown [id number] 01/20/2015 01/20/2015 [facility] Unknown [id number] 01/20/2015 01/20/2015 [facility] Unknown [id number] 02/16/2015 02/16/2015 [facility] Unknown [id number] 02/16/2015 02/16/2015 [facility] Unknown [id number] 02/16/2015 02/16/2015 [facility] Unknown [id number] 02/17/2015 02/17/2015 [facility] Unknown [id number] 02/17/2015 02/17/2015 [facility] Unknown [id number] 02/17/2015 02/17/2015 [facility] Refill [id number] 04/15/2015 04/15/2015 [facility] Refill [id number] 04/15/2015 04/15/2015 [facility] Refill [id number] 04/15/2015 04/15/2015 [facility] Unknown [id number] 05/10/2015 05/10/2015 [facility] Unknown [id number] 05/10/2015 05/10/2015 [facility] REFILL [id number] 07/19/2016 07/19/2016 [facility] Departed Emergency Room [id number] KIERA QUICK MD 11/18/2018 11/18/2018 [facility] Procedures Procedure Code Date Perfomer Comments Source Computed tomography of soft tissues of neck with contrast [id number] 11/18/2018 [facility] Computed tomography of chest with contrast [id number] 11/18/2018 [facility] Assessment and Plan No Data Provided for This Section Plan of Care Plan of Care Date Source Discharge Date 11/18/18 3:03am Disposition HOME, SELF-CARE Condition at Discharge Stable Instructions/Education Provided Soft Diet Heartburn Forms Provided Work/School Excuse Prescriptions See Medication Section Referrals AKIRA SONI MD Address: [address] [place] [address] [place] [address] [id number] DOMINIC MYERS MD Address: [address] [place] [address] ZAY ADAMS MD Address: [address] [place] [address] [address] [place] [address] Additional Instructions/Education FOLLOW UP WITH AN ENT FOR THE LESION ON YOUR TONGUE FOLLOW UP WITH A GI DOCTOR FOR THE ESOPHAGITIS TAKE MEDICATIONS PRESCRIBED 11/18/2018 [facility] Social History Social History Date Source Social History Problem Response Recorded Date/Time Onset Date Status Hx Psychiatric Problems No 01/13/2016 12:18am Not Applicable Not Applicable Hx Eating Disorder No 01/13/2016 12:18am Not Applicable Not Applicable Hx Substance Use Disorder No 01/13/2016 12:18am Not Applicable Not Applicable Hx Depression Y - SITUATIONAL DEPRESSION 01/13/2016 12:18am Not Applicable Not Applicable Hx Alcohol Use No 01/13/2016 12:18am Not Applicable Not Applicable Hx Substance Use Treatment No 01/13/2016 12:18am Not Applicable Not Applicable Hx Physical Abuse No 01/13/2016 12:18am Not Applicable Not Applicable Smoking Status Start Date Stop Date Never Smoker 11/18/2018 [facility] Social History ElementQualifiersDate Reported Last Bone Density: . never Mar 22, 2015 Depression Screening: . positive Mar 22, 2015 Flu Vaccine: . no Mar 22, 2015 Last Colonoscopy: . never Mar 22, 2015 Fall Risk: . 2+ in past year w/ injury Mar 22, 2015 Ethnicity . Status , Is frisian your primary language? Yes Mar 22, 2015 children . 2 Mar 22, 2015 Tobacco Use: . Are you a: never smoker Mar 22, 2015 Marital Status: single. Mar 22, 2015 Do you drink alcohol? . 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 Admin Mar 22, 2015 03/22/2015 [facility] Family History No Data Provided for This Section Advance Directives Order Name Results Value Date Source Advance Directives Advance Directives Directive Response Recorded Date/Time Does the patient have an advance directive? No 01/13/16 12:18am Do you have a Directive to Physician? No 11/18/18 12:34am Do you have a Medical Power of Tank Tender? No 11/18/18 12:34am Do you have an out of hospital Do Not Resuscitate Order? No 11/18/18 12:34am Do you have any special needs we should be aware of? No 11/18/18 12:34am Do you have a support person here with you today? Yes 11/18/18 12:34am Did patient receive Notice of Privacy Practices? Yes 11/18/18 12:34am Did patient receive patient rights and responsibilities? Yes 11/18/18 12:34am 11/18/2018 [facility] Functional Status No Data Provided for This Section
--- NOTE | 2019-01-14 14:05 | NUR ---
Report received from Antoine Andersen RN, review of procedural findings and medications given. Patient drowsy, easily aroused. maintains airway and room air saturations of 94-96%. No gross issues of pressure, pain, pallor or dysrhythmia. IV site patent with NS 0.9% at KVO by gravity. patient hemodynamically stable with hemostasis right radial TR band dressing CDI w/o s/s of bleeding. + neurovascular function. transported to ACU 8. Bed left low and locked, siderails up x2, call light at side, and placed on bedside monitoring. family called back to room - cgf procedure: Dx [facility] Sheath puller: TR band w/ 12ml air Meds Given Intra-Procedure Sedatives Versed - 2 mg Fentanyl - 50 mcg Radial Cocktail IA per MD Heparin - 3000 Units Verapamil - 2.5mg Nitro - 200 mcg Fluids Input - 250 est Output - dtv
--- NOTE | 2019-01-14 14:35 | NUR ---
Dr Wade speaking with family regarding findings and POC
--- NOTE | 2019-01-14 15:09 | NUR ---
family at bedside, POC reviewed. TR band ballon decreased by 2. No acute distress observed. Mild headach 3/10 behind "eyes". repositioned and food provided to alleviate discomfort.
--- NOTE | 2019-01-14 16:10 | NUR ---
TR band balloon deflation staged. Completely removed and dressing applied. Pt up to bathroom w/o incident. family at bedside.
--- NOTE | 2019-01-14 16:25 | Operative Report ---
DATE OF PROCEDURE: 01/14/2019 SURGEON: Tono Wade MD INDICATIONS: Coronary artery disease, abnormal stress test. PROCEDURES PERFORMED: 1. Left heart catheterization, selective coronary angiography. 2. Deployment of right wrist TR band. COMPLICATIONS: None. RECOMMENDATIONS: Medical therapy for cancer including surgery if indicated and chemotherapy, followed by staged intervention on the right coronary artery with CSI atherectomy via right femoral artery approach. DESCRIPTION OF PROCEDURE: Access obtained in the right radial artery. A 5-Djiboutian sheath was placed. Diagnostic coronary angiogram revealed patent stent in the distal left anterior descending artery. Circumflex left anterior descending artery had mild 20% to 30% stenosis. Right coronary artery heavily calcified, mid 70% stenosis with VANDANA-3 flow. No complications. LV end-diastolic pressure of 10. At this point, no intervention was deemed necessary. Right wrist TR band applied. The patient discharged home same day. Tono Wade MD KSB/MODL /[id number]
--- NOTE | 2019-01-14 16:30 | NUR ---
Pt meets DC criteria. right radial assessed for s/s of complication and presence of hematoma. overall skin warm, dry, no discolor, and pulses present. IV removed from left hand. Distal tip appears intact. VS WNL. Pt denies pain, sob, or need at this time. Family at bedside. Pt w/o c/o or need. Review of discharge paperwork and follow up instructions. verbalized understanding. Pt to wheelchair and transported to front of hospital. Transferred to private vehicle under own strength w/o incident with DC paperwork in hand. - cgf
== END | disposition home or self-care (01) ==
LOC: CATH LAB 10:46
PROVIDERS: ATTEND Internal Medicine Interventional Cardiology
DX: I25.10 Atherosclerotic heart disease of native coronary artery without angina pectoris (principal); C14.0 Malignant neoplasm of pharynx, unspecified; R94.39 Abnormal result of other cardiovascular function study; E11.9 Type 2 diabetes mellitus without complications; Z01.812 Encounter for preprocedural laboratory examination; Z79.02 Long term (current) use of antithrombotics/antiplatelets; Z79.84 Long term (current) use of oral hypoglycemic drugs; Z79.82 Long term (current) use of aspirin
CPT/HCPCS: 36415; 80053; 85025; 93458; C1769; C1887; J2001; J2250; J3010; J7030; Q9967

== ENCOUNTER 2019-04-09 07:52 | Inpatient (IN) | payer OTHER, MEDICARE ==
[~2019-04-09] VITALS: Ht 157.5 cm; Wt 64.4 kg
[~2019-04-09 07:52] MED LIST changes: -ALPRAZOLAM 0.5 MG TAB ONE; -DIPHENHYDRAMINE HCL 25 MG CAP ONE; -FENTANYL CITRATE/PF 100MCG/2 ML INJ ONE; -HEPARIN SOD/SOD CHLORIDE 2,000 ML ONE; -IOPAMIDOL 370 MG/ML 200 ML INFUS..BTL INJ ONE; -LIDOCAINE HCL 2% LOCAL 20 ML VIAL ONE; -MIDAZOLAM HCL 2 MG/2 ML VIAL ONE; -SODIUM CHLORIDE 0.9% 1000ML 1,000 ML ONE; -VERAPAMIL HCL 2.5 MG/ML 2 ML VIAL ONE
[2019-04-09] MEDS ORDERED: ONDANSETRON HCL INJ 2MG/ML 2ML 2 MG/ML VIAL IV STA (08:06)
[2019-04-09] MEDS ORDERED: SODIUM CHLORIDE 0.9% 1000ML 1,000 ML IV STA (08:06)
[2019-04-09] MEDS ORDERED: METFORMIN HCL500 MG PO (08:11)
[2019-04-09] MEDS ORDERED: VICTOZA 2-0.6 MG/0.1 (08:11)
[2019-04-09 08:19] LABS: BASOPHILS % 0.4 % (0.0-1.0); EOSINOPHILS % 0.6 % (0.0-6.0); HEMATOCRIT 38.4 % (34.2-44.1); HEMOGLOBIN 14.4 g/dL (12.0-16.0); LYMPHOCYTES # (AUTO) 0.4 (1.0-3.2); LYMPHOCYTES % 5.8 % (18.0-39.1); MEAN CORPUSCULAR HEMOGLOBIN 31.9 pg (28-32); MEAN CORPUSCULAR HGB CONC 37.5 g/dL (31-35); NEUTROPHILS # (AUTO) 5.4 (2.1-6.9); NEUTROPHILS % 78.9 % (38.7-80.0); PLATELET COUNT 162 x10e3/uL (140-360); RED BLOOD COUNT 4.52 x10e6/uL (3.6-5.1); RED CELL DISTRIBUTION WIDTH 14.2 % (11.7-14.4)
[2019-04-09 08:39] LABS: ALANINE AMINOTRANSFERASE 27 IU/L (0-55); ALBUMIN 3.6 g/dL (3.5-5.0); ALBUMIN/GLOBULIN RATIO 1.2 (0.8-2.0); ALKALINE PHOSPHATASE 81 IU/L (40-150); AMYLASE 30 U/L (25-125); ANION GAP 19.5 mmol/L (8-16); BLOOD UREA NITROGEN 12 mg/dL (7-26); CARBON DIOXIDE 28 mmol/L (22-29); CHLORIDE 93 mmol/L (98-107); GLUCOSE 193 mg/dL (74-118); LIPASE 23 U/L (8-78); SODIUM 138 mmol/L (136-145)
[2019-04-09 08:47] LABS: POTASSIUM 2.5 mmol/L (3.5-5.1)
[2019-04-09 08:58] LABS: BUN/CREATININE RATIO 16 (6-25); CREATININE, SERUM 0.74 mg/dL (0.57-1.11); EST GLOMERULAR FILTRATION RATE > 60 ML/MIN (60-)
[2019-04-09] MEDS ORDERED: POTASSIUM CHLORIDE 10MEQ/100ML 100 ML IV ONE ×2 (09:00→14:00)
--- NOTE | 2019-04-09 09:08 | Diagnostic Imaging Report ---
EXAM: CT Abdomen and Pelvis WITHOUT intravenous contrast INDICATION: Abdominal pain COMPARISON: None. TECHNIQUE: Abdomen and pelvis were scanned utilizing a multidetector helical scanner from the lung base to the pubic symphysis without administration of IV contrast. Coronal and sagittal reformations were obtained. IV CONTRAST: None ORAL CONTRAST: Water COMPLICATIONS: None RADIATION DOSE: Total DLP: 572.5 mGy*cm Dose modulation, iterative reconstruction, and/or weight based adjustment of the mA/kV was utilized to reduce the radiation dose to as low as reasonably achievable. FINDINGS: LOWER THORAX: No focal consolidation. 7 mm right lower lobe calcified granuloma. Atherosclerotic coronary artery calcifications. HEPATOBILIARY: No focal liver lesion. Mild gallbladder distention to 4.1 cm diameter. No pericholecystic fluid or gallbladder wall thickening. SPLEEN: No splenomegaly. PANCREAS: No focal masses or ductal dilatation. ADRENALS: No adrenal nodules. KIDNEYS/URETERS: No hydronephrosis, stones, or solid mass lesions. PELVIC ORGANS/BLADDER: Unremarkable. PERITONEUM / RETROPERITONEUM: No free air or fluid. LYMPH NODES: No lymphadenopathy. VESSELS: Scattered atherosclerotic calcifications of the nonaneurysmal abdominal aorta and major branches. GI TRACT: Stool throughout the colon intermixed with oral contrast material, likely from a prior exam. No abnormal bowel thickening. No bowel obstruction. The appendix is not well visualized, however there are no inflammatory changes in the right lower quadrant to suggest acute appendicitis. BONES AND SOFT TISSUES: No acute osseous injury. No suspicious lytic or blastic lesions. Mild degenerative changes of the visualized spine. IMPRESSION: No renal calculi or hydronephrosis. Mild gallbladder distention without specific CT findings of cholecystitis. Scattered atherosclerotic calcifications including of the coronary arteries. Signed by: Salazar Saul MD on 04/09/2019 9:05 AM
[2019-04-09] MEDS ORDERED: PROCHLORPERAZIN10 MG PO (09:31)
[2019-04-09] MEDS ORDERED: FENTANYL1 EACH TOP (09:31)
[2019-04-09] MEDS ORDERED: HYDROCODON-ACE1 EAC9 PO (09:31)
[2019-04-09] MEDS ORDERED: [UNRECOGNIZED DRUG - OTHER] PO (09:31)
[2019-04-09] MEDS ORDERED: GABAPENTIN300 MG PO (09:31)
[2019-04-09] MEDS ORDERED: SODIUM CHLORIDE 0.9% 1000ML 1,000 ML ONE (09:47)
[2019-04-09] MEDS ORDERED: SODIUM CHLORIDE 0.9% 1000ML 1,000 ML IV SCH (10:00)
[2019-04-09] MEDS: KCL 20MEQ/.9 SOD CHL 1,000 ML IV SCH ×3 (10:15→23:51)
[2019-04-09 11:15] LABS: BILIRUBIN,URINE MODERATE (NEGATIVE); CLARITY,URINE CLEAR (CLEAR); COLOR,URINE YELLOW (YELLOW); LEUKOCYTE ESTERASE ,URINE SMALL (NEGATIVE); NITRITE,URINE NEGATIVE (NEGATIVE); PROTEIN,URINE DIPSTICK TRACE (NEGATIVE); URINE UROBILINOGEN 2 mg/dL (0.2 - 1)
[2019-04-09 11:16] LABS: KETONES,URINE 2+ (NEGATIVE)
--- NOTE | 2019-04-09 11:21 | NUR ---
patient arrived to unit via stretcher, alert and oriented with at bedside. patient moved to hospital bed, in the lowest and locked position. call meneses within reach
[2019-04-09 11:30] LABS: EPITHELIAL CELLS,URINE MODERATE /LPF; RBC,URINE 0-5 /HPF (0-5)
[2019-04-09 11:31] LABS: MUCUS,URINE FEW (RARE)
[2019-04-09 11:34] LABS: BACTERIA,URINE FEW /HPF
[2019-04-09 12:00] VITALS: BP 106/63
[2019-04-09 12:08] VITALS: BP 106/63
[2019-04-09 12:33] VITALS: BP 106/63
[2019-04-09] MEDS ORDERED: PNEUMOCOCCAL VACCINE POLYVALENT 23 MCG/0.5 ML VIAL IM SCH (13:00)
[2019-04-09 15:35] VITALS: BP 102/62
[2019-04-09] MEDS ORDERED: DEXTROSE 50% SYRINGE 50 ML IV PRN (16:30)
[2019-04-09] MEDS: INSULIN REGULAR, HUMAN 100 UNIT/1 ML 3ML VIAL SQ SCH ×2 (16:30→21:00)
[2019-04-09 17:57] LABS: MAGNESIUM 1.4 MG/DL (1.3-2.1)
[2019-04-09 18:00] LABS: POTASSIUM 2.8 mmol/L (3.5-5.1)
[2019-04-09] MEDS ORDERED: POTASSIUM CHLORIDE 10MEQ/100ML 300 ML IV ONE (18:15)
[2019-04-09] MEDS ORDERED: POTASSIUM CHLORIDE 20MEQ/15ML UDC PO NR (18:15)
[2019-04-09 20:27] VITALS: BP 139/63
[2019-04-09 21:51] VITALS: BP 139/63
[2019-04-10] VITALS (11 sets, daily range): BP systolic 102–117; BP diastolic 54–70
[2019-04-10] MEDS: PROMETHAZINE 12.5MG/ NACL 0.9% 12.5 MG/50 ML BAG IV PRN (05:33)
[2019-04-10 05:42] LABS: BASOPHILS % 0.6 % (0.0-1.0); EOSINOPHILS % 0.9 % (0.0-6.0); HEMATOCRIT 33.7 % (34.2-44.1); HEMOGLOBIN 12.5 g/dL (12.0-16.0); LYMPHOCYTES # (AUTO) 0.4 (1.0-3.2); LYMPHOCYTES % 12.7 % (18.0-39.1); MEAN CORPUSCULAR HEMOGLOBIN 31.5 pg (28-32); MEAN CORPUSCULAR HGB CONC 37.1 g/dL (31-35); MEAN CORPUSCULAR VOLUME 84.9 fL (81-99); MONOCYTES # (AUTO) 0.5 (0.2-0.8); MONOCYTES % 15.3 % (4.4-11.3); NEUTROPHILS # (AUTO) 2.4 (2.1-6.9); NEUTROPHILS % 69.9 % (38.7-80.0); PLATELET COUNT 131 x10e3/uL (140-360); RED BLOOD COUNT 3.97 x10e6/uL (3.6-5.1); RED CELL DISTRIBUTION WIDTH 14.3 % (11.7-14.4)
[2019-04-10 06:02] LABS: BLOOD UREA NITROGEN 6 mg/dL (7-26); BUN/CREATININE RATIO 11 (6-25); CALCIUM 8.8 mg/dL (8.4-10.2); CARBON DIOXIDE 25 mmol/L (22-29); CHLORIDE 101 mmol/L (98-107); CREATININE, SERUM 0.54 mg/dL (0.57-1.11); EST GLOMERULAR FILTRATION RATE > 60 ML/MIN (60-); GLUCOSE 126 mg/dL (74-118); SODIUM 139 mmol/L (136-145)
[2019-04-10 06:36] LABS: CHOL/HDL RATIO 5.3 (3.0-3.6)
--- NOTE | 2019-04-10 06:42 | NUR ---
H&P cc: intractable N/V HPI: 69yoF, PCP , developed intractable N/V after getting XRT for throat cancer dx 8 week ago. Family requesting PEG placement for dysphagia. PMH: CAD s/p 2 stents (last 2014), NSTEMI, HTN, HLD, DM2, chr pain syndrome, TIA, THroat cancer dx Feb 2019 s/p XRT PSHx: coronary stents x2 (last 2014), C.section, hysterectomy Allergies; see emr Fh/SH; ; no cigs meds; see MAR ROS: unobtainable v/s; revd PE tired appearing anicteric; RIGHT THROAT REGION WITH PALPABLE MASS; NONTENDER ns1s2 mod bs soft nt nd no e/t skin dry flat affect awake; labs/meds revd A/P: 69yoF Dysphagia Intractable N/V Throat cancer s/p XRT Hypokalemia UTI CAD HTN HLD DM2 CHronic pain syndrome PLAN Swallow eval; GI eval - possible PEG placement; Phenegan for nausea; Replace K IV abx Restart home meds SCD Dispo: f/u swallow and GI. Erasto Oneill MD, PhD.
[2019-04-10] MEDS ORDERED: POTASSIUM CHLORIDE 20MEQ/100ML 100 ML IV ONE (07:15)
[2019-04-10] MEDS: INSULIN REGULAR, HUMAN 100 UNIT/1 ML 3ML VIAL SQ SCH ×4 (07:30→20:26)
[2019-04-10] MEDS ORDERED: POTASSIUM CHLORIDE 20 MEQ TAB CR PO ONE (07:30)
[2019-04-10] MEDS: KCL 20MEQ/.9 SOD CHL 1,000 ML IV SCH ×2 (08:00→18:15)
[2019-04-10] MEDS: PANTOPRAZOLE SOD 40 MG TABEC PO SCH (09:00)
[2019-04-10] MEDS: SERTRALINE HCL 50 MG TAB PO SCH (09:00)
[2019-04-10] MEDS: PROCHLORPERAZINE MALEATE TAB 10 MG TAB PO SCH (09:00)
[2019-04-10] MEDS: ASPIRIN 81 MG CHEW TAB PO SCH (09:00)
[2019-04-10] MEDS: METOPROLOL SUCCINATE 25 MG TAB XL PO SCH (09:00)
[2019-04-10] MEDS: GABAPENTIN 300 MG CAP PO SCH ×2 (09:00→17:00)
[2019-04-10] MEDS: CLOPIDOGREL BISULFATE 75 MG TAB PO SCH (09:00)
[2019-04-10] MEDS: LISINOPRIL 2.5 MG TAB PO SCH (09:00)
[2019-04-10] MEDS: CEFTRIAXONE SOD 1 GM/NS 50 ML 50 ML IV SCH (11:00)
[2019-04-10] MEDS ORDERED: POTASSIUM CHLORIDE 20MEQ/15ML UDC PO ONE (12:15)
[2019-04-10] MEDS: ACETAMINOPHEN 1000 MG/100 ML IV PRN ×2 (13:15→19:01)
[2019-04-10] MEDS ORDERED: MAALOX/LIDOCAINE/BENADRYL/NYST 30 ML BTL PO PRN (15:00)
--- NOTE | 2019-04-10 15:32 | NUR ---
Nutrition Intervention Note RD Recommendation(s) for Physician: - Diet per CARE DIRECTOR RN, if able to initiate diet recommend 1500 ADA, No added salt restrictions. - If pt deemed not safe for PO and EN is required, recommend TF of Glucerna 1.2 with goal rate of 55 ml/hr (to provide 1584 kcal and 79 gm protein). Water flushes and fluid management per MD. Plan of Care: RD following, monitoring for tolerance and adequacy. Diet and TF rec's Nutrition reason for involvement: Nutrition Risk Trigger- [facility] RD Assessment 04/10: 69 YOF admitted for hypokalemia, evaluated today per [facility] screen. Limited hx available in chart, pt discussed during am rounds. Pt with recent dx of throat cancer s/p XRT at [facility]. Pt with new onset difficulties swallowing impacting ability to eat, pt with apparent mass on neck per MD notes. Per RN GI and CARE DIRECTOR RN consulted for evaluations and PEG placement has been previously recommended while pt was undergoing cancer tx. Pt and family sleeping deeply at time of visit, unable to obtain hx. Diet and TF rec's provided. Will continue to monitor. Principal Problems/Diagnoses: hypokalemia PMH: throat cancer s/p XRT, CAD, HTN, DM2, HLD GI: difficulty swallowing, abd soft, flat- no BM recorded Skin: intact Labs: 04/10: Na 139, K 3, BUN 6, Cr 0.54, Gluc 126 Meds: abx, KCl, protonix, insulin, zocor, fentanyl Ht: 62 in Wt: 142 lb BMI: 26 IBW: 110 lb Malnutrition Evaluation (04/10/19) The patient does not meet criteria for a specified degree of malnutrition at this time. Will re-evaluate at follow-up as appropriate. Unable to evaluate at time of visit. Energy intake: Unable to evaluate Weight loss: Moderate- 10% wt loss in 6 mo per prior admit in November Fat loss: unable to evaluate Muscle loss: unable to evaluate Supporting Evidence: Fluid accumulation: unable to evaluate Functional Status: unable to evaluate Nutrition Prescription (Diet Order): NPO Estimated Nutritional Needs: 7513-9982 calories/day (18-22 kcal/kg CBW) 65-97 g protein/day (1-1.5 g pro/kg CBW) Diet Adequacy: Not meeting calorie needs, Not meeting protein needs Diet Tolerance: pending Diet Education Needs Assessment: Diet education not indicated, patient on temporary/transition diet. Nutrition Care Level: Mod Nutrition Diagnosis: Acute changes in ability to eat related to throat cancer with mass s/p radiation therapy as evidenced by new onset of swallowing difficulty and meet needs with po intake. Goal: Patient will meet 75-100% of estimated needs by follow up Progress: N/A Interventions: -CHO, texture per CARE DIRECTOR RN-modified diet, Composition, Rate, Route,Recommended Modifications, Collaboration with other providers Monitoring/Evaluation: -Total energy intake, Total protein intake, Formula/Solution, Modified diet Signed: Anjali Malhotra RD, LD, [facility]
[2019-04-10] MEDS: FENTANYL 25 MCG/HR PATCH TOP SCH (16:00)
[2019-04-10] MEDS: SIMVASTATIN 20 MG TAB PO SCH (20:43)
[2019-04-11] VITALS (10 sets, daily range): BP systolic 95–126; BP diastolic 49–158
[2019-04-11] MEDS: ACETAMINOPHEN 1000 MG/100 ML IV PRN (01:00)
[2019-04-11] MEDS: KCL 20MEQ/.9 SOD CHL 1,000 ML IV SCH ×3 (02:08→23:22)
[2019-04-11] MEDS: PROMETHAZINE 12.5MG/ NACL 0.9% 12.5 MG/50 ML BAG IV PRN (02:08)
[2019-04-11] MEDS: INSULIN REGULAR, HUMAN 100 UNIT/1 ML 3ML VIAL SQ SCH ×4 (07:30→20:16)
[2019-04-11] MEDS: LISINOPRIL 2.5 MG TAB PO SCH (07:52)
[2019-04-11] MEDS: GABAPENTIN 300 MG CAP PO SCH ×2 (07:52→15:56)
[2019-04-11] MEDS: CLOPIDOGREL BISULFATE 75 MG TAB PO SCH (07:52)
[2019-04-11] MEDS: PROCHLORPERAZINE MALEATE TAB 10 MG TAB PO SCH (07:52)
[2019-04-11] MEDS: ASPIRIN 81 MG CHEW TAB PO SCH (07:52)
[2019-04-11] MEDS: SERTRALINE HCL 50 MG TAB PO SCH (07:53)
[2019-04-11] MEDS: METOPROLOL SUCCINATE 25 MG TAB XL PO SCH (07:53)
[2019-04-11] MEDS: PANTOPRAZOLE SOD 40 MG TABEC PO SCH (07:53)
[2019-04-11] MEDS: CEFTRIAXONE SOD 1 GM/NS 50 ML 50 ML IV SCH (08:52)
--- NOTE | 2019-04-11 08:54 | NUR ---
IM- progress note O/N no events ROS: unobtainable v/s; revd PE tired appearing anicteric; RIGHT THROAT REGION WITH PALPABLE MASS; NONTENDER ns1s2 mod bs soft nt nd no e/t skin dry flat affect awake; labs/meds revd A/P: 69yoF Dysphagia Intractable N/V Throat cancer s/p XRT Hypokalemia UTI CAD HTN HLD DM2 CHronic pain syndrome PLAN Swallow eval; GI eval - possible PEG placement; Phenegan for nausea; Replace K IV abx Restart home meds SCD Dispo: f/u swallow and GI. 04-11 check labs; Erasto Oneill MD, PhD.
[2019-04-11 09:37] LABS: ANION GAP 15.2 mmol/L (8-16); BLOOD UREA NITROGEN 6 mg/dL (7-26); BUN/CREATININE RATIO 13 (6-25); CALCIUM 8.7 mg/dL (8.4-10.2); CARBON DIOXIDE 24 mmol/L (22-29); CHLORIDE 104 mmol/L (98-107); CREATININE, SERUM 0.47 mg/dL (0.57-1.11); EST GLOMERULAR FILTRATION RATE > 60 ML/MIN (60-); GLUCOSE 94 mg/dL (74-118); POTASSIUM 3.2 mmol/L (3.5-5.1); SODIUM 140 mmol/L (136-145)
--- NOTE | 2019-04-11 16:21 | NUR ---
Pt off of unit at this time to OR via bed with assist x1. A&O x3, resp WNL. IV patent, fluids on standby at this time. C/o pain to throat, 09/11.
--- NOTE | 2019-04-11 16:48 | NUR ---
Spoke with MD Randy Orozco, pt refused to have EGD preformed stated she does not want anything down her throat. Pam gave orders to consult jose c Corral for procedure.
--- NOTE | 2019-04-11 16:56 | NUR ---
Pt back in room at this time, arrived via bed with assist x1.
[2019-04-11] MEDS ORDERED: ACETAMINOPHEN 1000 MG/100 ML IV ONE (18:30)
--- NOTE | 2019-04-11 19:05 | NUR ---
Received report from previous nurse. Call light within reach. at bedside. Patient in bed.
[2019-04-11] MEDS: SIMVASTATIN 20 MG TAB PO SCH (20:27)
--- NOTE | 2019-04-11 22:51 | NUR ---
Patient complaining of 8 out of 10 pain in her throat. called and talked to Dr. Oneill and he ordered IV morphine
[2019-04-11] MEDS: MORPHINE SULFATE 2 MG/ML SYR 1ML IV PRN (23:02)
[2019-04-12] VITALS (8 sets, daily range): BP systolic 100–125; BP diastolic 55–66
[2019-04-12] MEDS: MORPHINE SULFATE 2 MG/ML SYR 1ML IV PRN ×5 (04:31→23:56)
--- NOTE | 2019-04-12 07:28 | NUR ---
GAVE REPORT TO ALCIDES ESQUIVEL. PATIENT IN BED. CALL LIGHT WITHIN REACH. Addendum: 04/12/19 at 0729 by Cinthia Pinzon RN AT [facility]
[2019-04-12] MEDS: INSULIN REGULAR, HUMAN 100 UNIT/1 ML 3ML VIAL SQ SCH ×4 (07:30→21:00)
[2019-04-12] MEDS: KCL 20MEQ/.9 SOD CHL 1,000 ML IV SCH ×3 (07:52→18:15)
[2019-04-12] MEDS: CEFTRIAXONE SOD 1 GM/NS 50 ML 50 ML IV SCH (08:14)
[2019-04-12] MEDS: PROCHLORPERAZINE MALEATE TAB 10 MG TAB PO SCH (08:14)
[2019-04-12] MEDS: ASPIRIN 81 MG CHEW TAB PO SCH (08:14)
[2019-04-12] MEDS: SERTRALINE HCL 50 MG TAB PO SCH (08:15)
[2019-04-12] MEDS: METOPROLOL SUCCINATE 25 MG TAB XL PO SCH (08:15)
[2019-04-12] MEDS: CLOPIDOGREL BISULFATE 75 MG TAB PO SCH (08:15)
[2019-04-12] MEDS: PANTOPRAZOLE SOD 40 MG TABEC PO SCH (08:15)
[2019-04-12] MEDS: GABAPENTIN 300 MG CAP PO SCH ×2 (08:15→16:40)
[2019-04-12] MEDS: LISINOPRIL 2.5 MG TAB PO SCH (08:15)
--- NOTE | 2019-04-12 10:27 | NUR ---
IM- progress note O/N no events ROS: unobtainable v/s; revd PE tired appearing anicteric; RIGHT THROAT REGION WITH PALPABLE MASS; NONTENDER ns1s2 mod bs soft nt nd no e/t skin dry flat affect awake; labs/meds revd A/P: 69yoF Dysphagia Intractable N/V Throat cancer s/p XRT Hypokalemia UTI CAD HTN HLD DM2 CHronic pain syndrome PLAN Swallow eval; GI eval - possible PEG placement; Phenegan for nausea; Replace K IV abx Restart home meds SCD Dispo: f/u swallow and GI. 04-11 check labs; 04/12 check K; PEG pending Erasto Oneill MD, PhD.
--- NOTE | 2019-04-12 11:27 | Consultation ---
DATE OF CONSULTATION: REASON FOR CONSULTATION: The patient needs a gastrostomy for enteral feedings and refuses PEG. 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 The patient was scheduled to have a PEG ysterday , but she refused PEG placement as well as IR intervention. We were consulted for open gastrostomy. PAST MEDICAL AND SURGICAL HISTORY: Significant for the fact that she has had gastric band placement for weight loss in 1984 and removal of lap band. She also has hysterectomy and C-sections. She has a history of coronary artery disease and has two stents. She has diabetes. SOCIAL HISTORY: She does not drink. She does not smoke. ALLERGIES: SHE HAS NO KNOWN ALLERGIES. REVIWE OF SYSTEMS: As per history of present illness. PHYSICAL EXAMINATION: GENERAL: Reveals a 69-year-old female, in no acute distress. HEAD, EYES, EARS, AND NOSE: Revealed some radiation changes in the neck from recent radiation therapy. LUNGS: Clear. HEART: Reveals regular sinus rhythm. ABDOMEN: Soft. There are healed midline scars with no hernias. EXTREMITIES: Reveal no clubbing, cyanosis, or edema. ASSESSMENT: History of throat cancer at the base of the tongue Locally advanced with neck metastasis. The patient refuses PEG and IR intervention and has requested open gastrostomy. The patient is aware the high risks she has to her airway because of her previous radiation therapy to the oropharynx and neck mets as well as her two upper abdominal surgeries .She she is also at high risk because of the history of coronary artery disease. She is also aware of potential risks of a gastrostomy such as leak, infection, malfunction. She desires tranfer to tertiary care facility . Thank you for this consultation MD MOLLY Hearn/GARRETT /[id number] PETTY
--- NOTE | 2019-04-12 17:56 | NUR ---
Received patient from [facility] and A/Ox3, remains NPO and per transferring nurse, patient was supposed to be transferred to [facility] for a high risk open gastrostomy procedure for which she agreed and later declined to go. supervisor [employer] is finalizing documentation for transfer and will come talk to the patient. IV line in place, call light within reach, will monitor.
[2019-04-12] MEDS: SIMVASTATIN 20 MG TAB PO SCH (21:00)
--- NOTE | 2019-04-12 23:45 | NUR ---
SPOKE TO DR. Sabi ADAMS AT THIS TIME REGARDING IV FLUIDS. NEW ORDERS RECEIVED TO CHANGE TO D5NS WITH 20KCL AND LABS IN THE MORNING
[2019-04-13] VITALS: BP 113/90
[2019-04-13] MEDS: D5NS/KCL 20MEQ 1,000 ML IV SCH ×4 (00:50→23:45)
--- NOTE | 2019-04-13 00:53 | NUR ---
DR. Sabi ADAMS DOING ROUNDS. SAID OK TO HAVE SIPS OF WATER
[2019-04-13] MEDS: MORPHINE SULFATE 2 MG/ML SYR 1ML IV PRN ×5 (04:40→21:48)
[2019-04-13 05:43] VITALS: BP 109/52
[2019-04-13 05:55] LABS: BASOPHILS % 0.4 % (0.0-1.0); EOSINOPHILS # (AUTO) 0.1 (0.0-0.4); EOSINOPHILS % 5.2 % (0.0-6.0); HEMATOCRIT 33.6 % (34.2-44.1); LYMPHOCYTES # (AUTO) 0.5 (1.0-3.2); LYMPHOCYTES % 18.3 % (18.0-39.1); MEAN CORPUSCULAR HEMOGLOBIN 31.3 pg (28-32); MEAN CORPUSCULAR HGB CONC 35.7 g/dL (31-35); MEAN CORPUSCULAR VOLUME 87.5 fL (81-99); MONOCYTES # (AUTO) 0.3 (0.2-0.8); MONOCYTES % 13.5 % (4.4-11.3); NEUTROPHILS # (AUTO) 1.6 (2.1-6.9); NEUTROPHILS % 62.6 % (38.7-80.0); PLATELET COUNT 100 x10e3/uL (140-360); RED BLOOD COUNT 3.84 x10e6/uL (3.6-5.1); RED CELL DISTRIBUTION WIDTH 14.7 % (11.7-14.4)
[2019-04-13 06:20] LABS: ALANINE AMINOTRANSFERASE 16 IU/L (0-55); ALBUMIN 2.6 g/dL (3.5-5.0); ALBUMIN/GLOBULIN RATIO 1.1 (0.8-2.0); ALKALINE PHOSPHATASE 56 IU/L (40-150); ANION GAP 14.2 mmol/L (8-16); BLOOD UREA NITROGEN 5 mg/dL (7-26); BUN/CREATININE RATIO 10 (6-25); CALCIUM 8.3 mg/dL (8.4-10.2); CARBON DIOXIDE 25 mmol/L (22-29); CHLORIDE 105 mmol/L (98-107); CREATININE, SERUM 0.49 mg/dL (0.57-1.11); EST GLOMERULAR FILTRATION RATE > 60 ML/MIN (60-); GLUCOSE 131 mg/dL (74-118); POTASSIUM 3.2 mmol/L (3.5-5.1); SODIUM 141 mmol/L (136-145)
[2019-04-13] MEDS: INSULIN REGULAR, HUMAN 100 UNIT/1 ML 3ML VIAL SQ SCH ×4 (07:30→20:41)
--- NOTE | 2019-04-13 07:30 | NUR ---
Received patient this morning, a/ox3, in bed and call light within reach, no distress, will monitor.
[2019-04-13] MEDS ORDERED: POTASSIUM CHLORIDE 20 MEQ TAB CR PO STA (07:46)
--- NOTE | 2019-04-13 07:49 | NUR ---
IM- progress note O/N no events ROS: unobtainable v/s; revd PE tired appearing anicteric; RIGHT THROAT REGION WITH PALPABLE MASS; NONTENDER ns1s2 mod bs soft nt nd no e/t skin dry flat affect awake; labs/meds revd A/P: 69yoF Dysphagia Intractable N/V Throat cancer s/p XRT Hypokalemia UTI CAD HTN HLD DM2 CHronic pain syndrome PLAN Swallow eval; GI eval - possible PEG placement; Phenegan for nausea; Replace K IV abx Restart home meds SCD Dispo: f/u swallow and GI. 04-11 check labs; 04/12 check K; PEG pending 04/13 Transfer to [facility] pending; discussed with team via telephone; Erasto Oneill MD, PhD.
[2019-04-13] MEDS ORDERED: POTASSIUM CHLORIDE 20MEQ/100ML 200 ML IV ONE (08:00)
[2019-04-13 08:21] VITALS: BP 114/58
--- NOTE | 2019-04-13 08:30 | NUR ---
Call to Dr. Randy Orozco regarding completion of PEG tube placement and he will not be available starting 04/14 to 04/24/19 and deferring open gastrostomy to Dr. Jason Menon but given the risk of airway management per Dr. Jason Menon, he is recommending procedure be done at the medical center. Dr. Oneill is aware and agrees with plan and wants patient sent down today.
[2019-04-13] MEDS: CEFTRIAXONE SOD 1 GM/NS 50 ML 50 ML IV SCH (08:47)
[2019-04-13] MEDS: PANTOPRAZOLE SOD 40 MG TABEC PO SCH (09:00)
[2019-04-13] MEDS: GABAPENTIN 300 MG CAP PO SCH ×2 (09:00→17:00)
[2019-04-13] MEDS: ASPIRIN 81 MG CHEW TAB PO SCH (09:00)
[2019-04-13] MEDS: CLOPIDOGREL BISULFATE 75 MG TAB PO SCH (09:00)
[2019-04-13] MEDS: LISINOPRIL 2.5 MG TAB PO SCH (09:00)
[2019-04-13] MEDS: PROCHLORPERAZINE MALEATE TAB 10 MG TAB PO SCH (09:00)
[2019-04-13] MEDS: SERTRALINE HCL 50 MG TAB PO SCH (09:00)
[2019-04-13] MEDS: METOPROLOL SUCCINATE 25 MG TAB XL PO SCH (09:00)
--- NOTE | 2019-04-13 11:38 | NUR ---
Spoke with Italo the greenhouse manager about the status of transfer to the [facility] and he states that [facility] will not be able to do anything until tomorrow.
[2019-04-13 12:42] VITALS: BP 118/64
--- NOTE | 2019-04-13 15:45 | NUR ---
Patient stable, IV fluids in place running, remains NPO, no distress, report given to MORALES Mendiola at this time.
[2019-04-13] MEDS: FENTANYL 25 MCG/HR PATCH TOP SCH (16:00)
[2019-04-13 16:17] VITALS: BP 102/51
--- NOTE | 2019-04-13 17:01 | NUR ---
Attempted to give patient regular insulin per orders for blood sugar 212 mg/dl, patient stated that she did want it because it would cause her blood sugar to drop low.
[2019-04-13 20:00] VITALS: BP 114/63
[2019-04-13] MEDS: SIMVASTATIN 20 MG TAB PO SCH (20:44)
[2019-04-14] VITALS: BP 110/55
[2019-04-14] MEDS: MORPHINE SULFATE 2 MG/ML SYR 1ML IV PRN ×2 (01:54→08:30)
[2019-04-14 04:00] VITALS: BP 110/55
[2019-04-14] MEDS: D5NS/KCL 20MEQ 1,000 ML IV SCH ×2 (04:31→13:17)
[2019-04-14 07:30] VITALS: BP 104/63
[2019-04-14 08:22] VITALS: BP 104/63
[2019-04-14] MEDS: CEFTRIAXONE SOD 1 GM/NS 50 ML 50 ML IV SCH (08:37)
[2019-04-14] MEDS: INSULIN REGULAR, HUMAN 100 UNIT/1 ML 3ML VIAL SQ SCH ×2 (08:39→11:54)
[2019-04-14] MEDS: ASPIRIN 81 MG CHEW TAB PO SCH (08:40)
[2019-04-14] MEDS: GABAPENTIN 300 MG CAP PO SCH (08:40)
[2019-04-14] MEDS: CLOPIDOGREL BISULFATE 75 MG TAB PO SCH (08:40)
[2019-04-14] MEDS: LISINOPRIL 2.5 MG TAB PO SCH (08:40)
[2019-04-14] MEDS: PROCHLORPERAZINE MALEATE TAB 10 MG TAB PO SCH (08:40)
[2019-04-14] MEDS: PANTOPRAZOLE SOD 40 MG TABEC PO SCH (08:41)
[2019-04-14] MEDS: SERTRALINE HCL 50 MG TAB PO SCH (08:41)
[2019-04-14] MEDS: METOPROLOL SUCCINATE 25 MG TAB XL PO SCH (08:41)
--- NOTE | 2019-04-14 10:48 | NUR ---
ST NOTE: Pt currently awaiting transfer to [facility]. Defer intervention at this time. Handoff to CAMPOS Ibarra
[2019-04-14 12:00] VITALS: BP 110/69
--- NOTE | 2019-04-14 13:20 | NUR ---
Call placed to Dr. Oneill to inform of patient leaving AMA. Left a message to inform of the situation
--- NOTE | 2019-04-14 13:45 | NUR ---
pt has left AMA. paperwork complete. pt aware of risks tried to get supervisor residential on board to let them know about an update on transfer to [facility] pt refused, states wanting to leave and wants paperwork iv dc pressure dressing applied and taped tele dc pt wheel chaired to car called md deluca. no answer left voicemail to notify
== END 2019-04-14 13:40 | disposition left against medical advice (07) | DRG 392 ==
LOC: ER 07:52 → ERHOLD 10:05 → IMCU 11:24 → OBSVTOIN 04-10 12:15 → MED/SURG 04-12 17:25
PROVIDERS: ADMIT Internal Medicine; ATTEND Internal Medicine
DX: R13.19 Other dysphagia (principal); C79.89 Secondary malignant neoplasm of other specified sites; N39.0 Urinary tract infection, site not specified; C02.9 Malignant neoplasm of tongue, unspecified; I25.10 Atherosclerotic heart disease of native coronary artery without angina pectoris; Z86.73 Personal history of transient ischemic attack (TIA), and cerebral infarction without residual deficits; Z95.5 Presence of coronary angioplasty implant and graft; E87.6 Hypokalemia; E11.9 Type 2 diabetes mellitus without complications; G89.4 Chronic pain syndrome; I10 Essential (primary) hypertension; Z53.29 Procedure and treatment not carried out because of patient's decision for other reasons; Y84.2 Radiological procedure and radiotherapy as the cause of abnormal reaction of the patient, or of later complication, without mention of misadventure at the time of the procedure; E86.0 Dehydration
CPT/HCPCS: 36415; 74176; 80048; 80053; 80061; 81001; 82150; 82948; 83036; 83690; 83735; 84132; 85025; 99284; G0378; J0696; J1817; J2270; J2405; J2550; J3480; J7030

== ENCOUNTER 2020-05-01 17:04 | Emergency (ER) | payer OTHER, MEDICARE ==
[~2020-05-01] VITALS: Ht 157.5 cm; Wt 64.4 kg
[~2020-05-01 17:04] MED LIST changes: +FENTANYL1 EACH TOP; +GABAPENTIN300 MG PO; +HYDROCODON-ACE1 EAC9 PO; +PROCHLORPERAZIN10 MG PO; +VICTOZA 2-0.6 MG/0.1; +[UNRECOGNIZED DRUG - OTHER] PO
[2020-05-01] MEDS ORDERED: HYDROCODONE/APAP 7.5MG-325MG 1 EA TAB PO PRN (18:15)
[2020-05-01 20:03] VITALS: BP 135/99
[2020-05-01] MEDS ORDERED: ULTRAM50 MG PO (20:04)
== END 2020-05-01 20:15 | disposition home or self-care (01) ==
LOC: ER 17:11
DX: M25.552 Pain in left hip (principal); S72.052A Unspecified fracture of head of left femur, initial encounter for closed fracture; W01.0XXA Fall on same level from slipping, tripping and stumbling without subsequent striking against object, initial encounter; Y93.01 Activity, walking, marching and hiking; Y92.008 Other place in unspecified non-institutional (private) residence as the place of occurrence of the external cause; I10 Essential (primary) hypertension; E11.9 Type 2 diabetes mellitus without complications; E78.5 Hyperlipidemia, unspecified; K21.9 Gastro-esophageal reflux disease without esophagitis; Z85.818 Personal history of malignant neoplasm of other sites of lip, oral cavity, and pharynx
CPT/HCPCS: 99283

== ENCOUNTER 2024-11-04 17:12 | Inpatient (IN) | payer MEDICARE, BC ==
[~2024-11-04] VITALS: Ht 157.5 cm; Wt 64.4 kg
[~2024-11-04 17:12] MED LIST changes: +ULTRAM50 MG PO
[2024-11-04] MEDS: SODIUM CHLORIDE 0.9% 1000ML 2,000 ML IV STA (19:00)
[2024-11-04 19:08] LABS: BASOPHILS % 0.2 % (0.0-1.0); HEMATOCRIT 35.6 % (34.2-44.1); HEMOGLOBIN 13.2 g/dL (12.0-16.0); LYMPHOCYTES # (AUTO) 0.4 (1.0-3.2); LYMPHOCYTES % 9.5 % (18.0-39.1); MEAN CORPUSCULAR HEMOGLOBIN 32.3 pg (28-32); MEAN CORPUSCULAR HGB CONC 37.1 g/dL (31-35); MONOCYTES # (AUTO) 0.4 (0.2-0.8); MONOCYTES % 9.3 % (4.4-11.3); NEUTROPHILS # (AUTO) 3.4 (2.1-6.9); NEUTROPHILS % 80.3 % (38.7-80.0); PLATELET COUNT 68 x10e3/uL (140-360); RED BLOOD COUNT 4.09 x10e6/uL (3.6-5.1); WHITE BLOOD COUNT 4.19 x10e3/uL (4.8-10.8)
[2024-11-04 19:31] LABS: ALBUMIN 4.2 g/dL (3.5-5.0); ALBUMIN/GLOBULIN RATIO 1.5 (0.8-2.0); ANION GAP 17.6 mmol/L (8-16); BILIRUBIN,TOTAL 3.2 mg/dL (0.2-1.2); CALCIUM 9.3 mg/dL (8.4-10.2); CREATININE, SERUM 0.85 mg/dL (0.57-1.11); POTASSIUM 3.6 mmol/L (3.5-5.1)
[2024-11-04 19:37] LABS: TROPONIN I 0.016 ng/mL (0-0.300)
[2024-11-04 19:51] LABS: BILIRUBIN,URINE SMALL (NEGATIVE); CLARITY,URINE SL CLOUDY (CLEAR); COLOR,URINE AMBER (YELLOW); GLUCOSE, URINE 500 (NEGATIVE); KETONES,URINE 2+ (NEGATIVE); LEUKOCYTE ESTERASE ,URINE NEGATIVE (NEGATIVE); NITRITE,URINE NEGATIVE (NEGATIVE); PH,URINE 5.5 (5 - 7); PROTEIN,URINE DIPSTICK 2+ (NEGATIVE); URINE UROBILINOGEN 4 mg/dL (0.2 - 1)
[2024-11-04] MEDS ORDERED: Morphine 4mg INJECTION 4 MG/ML INJ IV PRN (20:00)
[2024-11-04] MEDS ORDERED: ONDANSETRON HCL INJ 2MG/ML 2ML 2 MG/ML VIAL IV PRN (20:00)
[2024-11-04] MEDS ORDERED: IOPAMIDOL 370 MG/ML 100 ML INFUS..BTL INJ ONE (20:00)
[2024-11-04 20:02] LABS: BACTERIA,URINE MODERATE /HPF; EPITHELIAL CELLS,URINE FEW /LPF; YEAST,URINE MODERATE
[2024-11-04 20:05] VITALS: PULSE 73; RESP 20; TEMP 98.5
[2024-11-04 21:00] VITALS: BP 109/69; PULSE 84; RESP 18; TEMP 99.2; O2SAT 99
[2024-11-04 21:34] LABS: TROPONIN I 0.012 ng/mL (0-0.300)
[2024-11-04 21:44] VITALS: BP 92/71; PULSE 80; RESP 18; TEMP 99.9; O2SAT 98
[2024-11-04] MEDS ORDERED: HYDROXYZINE HCL10 MG PO (22:21)
[2024-11-04] MEDS ORDERED: DIPHENHYDRAMINE25 MG PO (22:22)
[2024-11-04 22:28] VITALS: BP 92/69; PULSE 89; RESP 20; TEMP 99.2; O2SAT 98
[2024-11-05] VITALS (12 sets, daily range): BP systolic 100–136; BP diastolic 51–80; PULSE 61–93; RESP 16–18; TEMP 37.6; O2SAT 94–100
[2024-11-05] MEDS: SODIUM CHLORIDE 0.9% 1000ML 1,000 ML IV SCH (00:23)
[2024-11-05 05:45] LABS: BASOPHILS % 0.6 % (0.0-1.0); HEMATOCRIT 30.8 % (34.2-44.1); HEMOGLOBIN 11.4 g/dL (12.0-16.0); LYMPHOCYTES # (AUTO) 0.4 (1.0-3.2); LYMPHOCYTES % 10.9 % (18.0-39.1); MEAN CORPUSCULAR HEMOGLOBIN 32.5 pg (28-32); MEAN CORPUSCULAR VOLUME 87.7 fL (81-99); MONOCYTES # (AUTO) 0.2 (0.2-0.8); NEUTROPHILS # (AUTO) 2.7 (2.1-6.9); NEUTROPHILS % 81.2 % (38.7-80.0); PLATELET COUNT 60 x10e3/uL (140-360); RED BLOOD COUNT 3.51 x10e6/uL (3.6-5.1); WHITE BLOOD COUNT 3.29 x10e3/uL (4.8-10.8)
[2024-11-05 06:15] LABS: ALBUMIN 3.3 g/dL (3.5-5.0); ALBUMIN/GLOBULIN RATIO 1.3 (0.8-2.0); ANION GAP 13.9 mmol/L (8-16); BILIRUBIN,TOTAL 2.7 mg/dL (0.2-1.2); CALCIUM 8.4 mg/dL (8.4-10.2); CREATININE, SERUM 0.7 mg/dL (0.57-1.11); TOTAL PROTEIN 5.8 g/dL (6.5-8.1)
[2024-11-05 06:25] LABS: POTASSIUM 2.9 mmol/L (3.5-5.1); TROPONIN I 0.03 ng/mL (0-0.300)
[2024-11-05] MEDS ORDERED: ACETAMINOPHEN 325 MG TAB PO PRN (07:30)
[2024-11-05] MEDS ORDERED: DEXTROSE 50% SYRINGE 50 ML IV PRN (07:30)
[2024-11-05] MEDS ORDERED: HYDRALAZINE HCL 25 MG TAB PO PRN (07:30)
[2024-11-05] MEDS: ASPIRIN 81 MG CHEW TAB PO SCH (08:47)
[2024-11-05] MEDS: POTASSIUM CHLORIDE 10MEQ EA PO SCH (08:48)
[2024-11-05] MEDS: SERTRALINE HCL 50 MG TAB PO SCH (08:48)
[2024-11-05] MEDS: FLUCONAZOLE 100 MG TAB PO ONE (08:53)
[2024-11-05] MEDS: INSULIN LISPRO 100 UNIT/1 ML 3ML VIAL SQ SCH (08:57)
[2024-11-05] MEDS ORDERED: SIMVASTATIN 40 MG TAB PO SCH (09:00)
[2024-11-05 15:30] LABS: TROPONIN I 0.021 ng/mL (0-0.300)
[2024-11-05] MEDS: ENOXAPARIN SOD INJ 40 MG/0.4 ML SYR SC SCH (18:05)
[2024-11-05] MEDS: CRESTOR 10MG PO SCH (20:52)
[2024-11-05] MEDS: METOPROLOL SUCCINATE 25 MG TAB XL PO SCH (20:54)
[2024-11-06] VITALS (10 sets, daily range): BP systolic 106–146; BP diastolic 69–89; PULSE 73–89; RESP 17–18; TEMP 97.6–99.7; O2SAT 95–100
[2024-11-06 06:24] LABS: BASOPHILS % 0.6 % (0.0-1.0); HEMATOCRIT 29.4 % (34.2-44.1); HEMOGLOBIN 11.1 g/dL (12.0-16.0); LYMPHOCYTES # (AUTO) 0.5 (1.0-3.2); LYMPHOCYTES % 15.4 % (18.0-39.1); MEAN CORPUSCULAR HEMOGLOBIN 32.3 pg (28-32); MEAN CORPUSCULAR HGB CONC 37.8 g/dL (31-35); MEAN CORPUSCULAR VOLUME 85.5 fL (81-99); MONOCYTES # (AUTO) 0.4 (0.2-0.8); MONOCYTES % 10.6 % (4.4-11.3); NEUTROPHILS # (AUTO) 2.4 (2.1-6.9); NEUTROPHILS % 73.1 % (38.7-80.0); PLATELET COUNT 54 x10e3/uL (140-360); RED BLOOD COUNT 3.44 x10e6/uL (3.6-5.1); RED CELL DISTRIBUTION WIDTH 11.9 % (11.7-14.4); WHITE BLOOD COUNT 3.31 x10e3/uL (4.8-10.8)
[2024-11-06 06:51] LABS: ANION GAP 13.1 mmol/L (8-16); CALCIUM 8.1 mg/dL (8.4-10.2); CREATININE, SERUM 0.64 mg/dL (0.57-1.11)
[2024-11-06 06:52] LABS: MAGNESIUM 1.2 MG/DL (1.3-2.1); PHOSPHORUS 1.3 MG/DL (2.3-4.7)
[2024-11-06 07:08] LABS: POTASSIUM 3.1 mmol/L (3.5-5.1)
[2024-11-06 07:15] LABS: THYROID STIMULATING HORMONE 1.439 uIU/mL (0.350-4.940)
[2024-11-06] MEDS: FLUCONAZOLE 100 MG TAB PO SCH (09:37)
[2024-11-06 10:26] LABS: ALBUMIN 3.4 g/dL (3.5-5.0); BILIRUBIN,TOTAL 2.2 mg/dL (0.2-1.2); TOTAL PROTEIN 5.6 g/dL (6.5-8.1)
[2024-11-06 11:11] LABS: BILIRUBIN,DIRECT 1.2 mg/dL (0.0-0.5)
[2024-11-07 04:41] VITALS: BP 118/60; PULSE 67; RESP 18; TEMP 98.6; O2SAT 96
[2024-11-07 07:25] VITALS: BP 106/83; PULSE 72; RESP 17; TEMP 97.5; O2SAT 93
[2024-11-07 09:00] VITALS: BP 106/83; PULSE 72; RESP 17; TEMP 97.5; O2SAT 93
[2024-11-07 11:33] VITALS: BP 117/57; PULSE 66; RESP 17; TEMP 98.6; O2SAT 96
[2024-11-07 18:11] VITALS: BP 102/56; PULSE 69; RESP 17; TEMP 97.9; O2SAT 95
[2024-11-07 20:00] VITALS: BP 108/49; PULSE 75; RESP 16; TEMP 99; O2SAT 96
[2024-11-08] VITALS (7 sets, daily range): BP systolic 93–109; BP diastolic 50–60; PULSE 64–75; RESP 16–18; TEMP 97.5–99.1; O2SAT 94–98
[2024-11-08 06:12] LABS: BASOPHILS % 0.2 % (0.0-1.0); EOSINOPHILS % 0.2 % (0.0-6.0); HEMATOCRIT 27.2 % (34.2-44.1); HEMOGLOBIN 10.3 g/dL (12.0-16.0); LYMPHOCYTES # (AUTO) 0.8 (1.0-3.2); LYMPHOCYTES % 15.4 % (18.0-39.1); MEAN CORPUSCULAR HEMOGLOBIN 31.9 pg (28-32); MEAN CORPUSCULAR HGB CONC 37.9 g/dL (31-35); MEAN CORPUSCULAR VOLUME 84.2 fL (81-99); MONOCYTES # (AUTO) 0.4 (0.2-0.8); MONOCYTES % 7.9 % (4.4-11.3); NEUTROPHILS # (AUTO) 3.8 (2.1-6.9); NEUTROPHILS % 75.9 % (38.7-80.0); PLATELET COUNT 68 x10e3/uL (140-360); RED BLOOD COUNT 3.23 x10e6/uL (3.6-5.1); RED CELL DISTRIBUTION WIDTH 11.9 % (11.7-14.4); WHITE BLOOD COUNT 5.05 x10e3/uL (4.8-10.8)
[2024-11-08 06:42] LABS: ANION GAP 13.6 mmol/L (8-16); CREATININE, SERUM 0.65 mg/dL (0.57-1.11)
[2024-11-08 06:44] LABS: POTASSIUM 2.6 mmol/L (3.5-5.1)
[2024-11-08] MEDS: POTASSIUM CHLORIDE 20 MEQ TAB CR PO STA (07:09)
[2024-11-08] MEDS: POTASSIUM CHLORIDE 20 MEQ TAB CR PO ONE (09:37)
[2024-11-08] MEDS: MAGNESIUM SULFATE 2GM/50ML IV ONE (12:03)
[2024-11-08] MEDS: POTASSIUM PHOSPHATE 20 MM in SODIUM CHLORIDE 0.9% 250ML 250 ML IV SCH (13:52)
[2024-11-08 16:34] LABS: PLATELET ESTIMATE MODERATELY DECREASED; PLATELET MORPHOLOGY COMMENT FEW LARGE; RBC MORPHOLOGY COMMENT NORMAL
[2024-11-09] VITALS (8 sets, daily range): BP systolic 95–111; BP diastolic 52–74; PULSE 55–70; RESP 17–21; TEMP 97.2–98.2; O2SAT 95–100
[2024-11-09 06:00] LABS: MAGNESIUM 1.8 MG/DL (1.3-2.1); PHOSPHORUS 1.9 MG/DL (2.3-4.7)
[2024-11-09 06:32] LABS: ANION GAP 16.5 mmol/L (8-16); CALCIUM 8.1 mg/dL (8.4-10.2); CREATININE, SERUM 0.64 mg/dL (0.57-1.11); POTASSIUM 3.5 mmol/L (3.5-5.1)
[2024-11-09] MEDS: POTASSIUM PHOSPHATE 20 MM in SODIUM CHLORIDE 0.9% 250ML 250 ML IV SCH (15:40)
[2024-11-09] MEDS: MEGESTROL ACETATE 40 MG TAB PO SCH (19:07)
[2024-11-09] MEDS: MIRTAZAPINE 15 MG TAB PO SCH (23:11)
[2024-11-10] VITALS (7 sets, daily range): BP systolic 98–123; BP diastolic 48–59; PULSE 53–66; RESP 17–20; TEMP 96.7–98.6; O2SAT 95–98
[2024-11-10] MEDS: SODIUM CHLORIDE 0.9% 500ML 0 ML ONE (07:51)
[2024-11-11 05:17] VITALS: BP 120/65; PULSE 64; RESP 18; TEMP 97.6; O2SAT 99
[2024-11-11 05:21] LABS: BASOPHILS % 0.5 % (0.0-1.0); EOSINOPHILS % 0.5 % (0.0-6.0); HEMATOCRIT 28.3 % (34.2-44.1); HEMOGLOBIN 10.5 g/dL (12.0-16.0); LYMPHOCYTES # (AUTO) 1.5 (1.0-3.2); MEAN CORPUSCULAR HEMOGLOBIN 32.5 pg (28-32); MEAN CORPUSCULAR HGB CONC 37.1 g/dL (31-35); MEAN CORPUSCULAR VOLUME 87.6 fL (81-99); MONOCYTES # (AUTO) 0.5 (0.2-0.8); MONOCYTES % 7.7 % (4.4-11.3); NEUTROPHILS # (AUTO) 3.9 (2.1-6.9); NEUTROPHILS % 65.6 % (38.7-80.0); PLATELET COUNT 159 x10e3/uL (140-360); RED BLOOD COUNT 3.23 x10e6/uL (3.6-5.1); RED CELL DISTRIBUTION WIDTH 12.8 % (11.7-14.4); WHITE BLOOD COUNT 5.87 x10e3/uL (4.8-10.8)
[2024-11-11 05:40] LABS: CALCIUM 8.4 mg/dL (8.4-10.2); CREATININE, SERUM 0.58 mg/dL (0.57-1.11)
[2024-11-11 06:11] LABS: MAGNESIUM 1.6 MG/DL (1.3-2.1)
[2024-11-11 08:06] VITALS: BP 92/52; PULSE 65; RESP 18; TEMP 97.9; O2SAT 100
[2024-11-11 09:56] LABS: LYMPHOCYTES % (MANUAL) 20 % (19-48); MONOCYTES % (MANUAL) 6 % (3.4-9.0); NEUTROPHILS % (MANUAL) 71 % (40-74); REACTIVE LYMPHOCYTES 3
[2024-11-11 09:57] LABS: PLATELET ESTIMATE ADEQUATE; PLATELET MORPHOLOGY COMMENT NORMAL; RBC MORPHOLOGY COMMENT NORMAL
[2024-11-11] MEDS ORDERED: MAGNESIUM SULFATE 2GM/50ML IV ONE (10:45)
[2024-11-11 11:45] VITALS: BP 115/57; PULSE 65; RESP 18; TEMP 98.2; O2SAT 98
[2024-11-11] MEDS ORDERED: POTASSIUM PHOSPHATE 20 MM in SODIUM CHLORIDE 0.9% 250ML 250 ML IV SCH (12:00)
[2024-11-11] MEDS: KCL 20MEQ/.9 SOD CHL 1,000 ML IV ONE (13:50)
[2024-11-11] MEDS: MAGNESIUM SULFATE 2GM/50ML 50 ML IV ONE (13:55)
[2024-11-11 15:34] VITALS: BP 117/65; PULSE 56; RESP 18; TEMP 97.9; O2SAT 96
[2024-11-11] MEDS: POTASSIUM CHLORIDE 10MEQ EA PO ONE ×2 (17:56→18:07)
[2024-11-11 20:00] VITALS: BP 109/60; PULSE 61; RESP 20; TEMP 97.7; O2SAT 97
[2024-11-11] MEDS ORDERED: METOPROLOL SUCCINATE 25 MG TAB XL PO SCH (21:00)
[2024-11-11 23:48] VITALS: BP 112/58; PULSE 61; RESP 16; TEMP 97.3; O2SAT 96
[2024-11-12 05:55] VITALS: BP 110/52; PULSE 63; RESP 18; TEMP 97.8; O2SAT 97
[2024-11-12 06:29] LABS: ANION GAP 12.4 mmol/L (8-16); CALCIUM 8.4 mg/dL (8.4-10.2); CREATININE, SERUM 0.54 mg/dL (0.57-1.11)
[2024-11-12 06:31] LABS: MAGNESIUM 1.9 MG/DL (1.3-2.1); PHOSPHORUS 3.5 MG/DL (2.3-4.7)
[2024-11-12 06:32] LABS: POTASSIUM 3.4 mmol/L (3.5-5.1)
[2024-11-12 07:39] VITALS: BP 118/73; PULSE 68; RESP 18; TEMP 98.6; O2SAT 94
[2024-11-12 08:00] VITALS: BP 118/73; PULSE 68; RESP 18; TEMP 98.6; O2SAT 94
[2024-11-12] MEDS: SODIUM BICARBONATE 650 MG TAB PO SCH (10:39)
[2024-11-12] MEDS: POTASSIUM CHLORIDE 20 MEQ TAB CR PO ONE (10:40)
[2024-11-12 11:27] VITALS: BP 126/82; PULSE 71; RESP 19; TEMP 97.9; O2SAT 96
[2024-11-12] MEDS ORDERED: ONDANSETRON HCL 4 MG ORAL DISINTEGRATING TAB PO PRN (13:45)
[2024-11-12 15:22] VITALS: BP 136/71; PULSE 75; RESP 18; TEMP 97.6; O2SAT 98
== END 2024-11-12 18:34 | disposition home health service (06) | DRG 871 ==
LOC: ER 18:17 → ERHOLD 19:59 → MED/SURG2 21:57
PROVIDERS: ADMIT Internal Medicine; ATTEND Internal Medicine
DX: A41.9 Sepsis, unspecified organism (principal); G93.41 Metabolic encephalopathy; J18.9 Pneumonia, unspecified organism; E22.2 Syndrome of inappropriate secretion of antidiuretic hormone; E44.0 Moderate protein-calorie malnutrition; R62.7 Adult failure to thrive; E11.42 Type 2 diabetes mellitus with diabetic polyneuropathy; E11.65 Type 2 diabetes mellitus with hyperglycemia; I10 Essential (primary) hypertension; N30.90 Cystitis, unspecified without hematuria; R63.0 Anorexia; E78.5 Hyperlipidemia, unspecified; R32 Unspecified urinary incontinence; F32.A Depression, unspecified; R53.81 Other malaise; F01.50 Vascular dementia, unspecified severity, without behavioral disturbance, psychotic disturbance, mood disturbance, and anxiety; I25.10 Atherosclerotic heart disease of native coronary artery without angina pectoris; D64.9 Anemia, unspecified; I95.9 Hypotension, unspecified; K76.0 Fatty (change of) liver, not elsewhere classified; K21.9 Gastro-esophageal reflux disease without esophagitis; Z79.84 Long term (current) use of oral hypoglycemic drugs; Z79.02 Long term (current) use of antithrombotics/antiplatelets; Z79.82 Long term (current) use of aspirin; Z79.85 Long-term (current) use of injectable non-insulin antidiabetic drugs; Z95.5 Presence of coronary angioplasty implant and graft; Z86.73 Personal history of transient ischemic attack (TIA), and cerebral infarction without residual deficits; Z85.20 Personal history of malignant neoplasm of unspecified respiratory organ; Z68.26 Body mass index [BMI] 26.0-26.9, adult
CPT/HCPCS: 36415; 36568; 70450; 71045; 71250; 74177; 76705; 80048; 80053; 80076; 81001; 82140; 82550; 82948; 83036; 83735; 83880; 84100; 84443; 84484; 85025; 87040; 87086; 93005; 93306; 94799; 96372; 99285; J1650; J2543; J3475; J7030; J7040; J7050; Q9967

== ENCOUNTER 2024-12-26 16:30 | Observation (INO) | payer MEDICARE, BC ==
[~2024-12-26] VITALS: Ht 157.5 cm; Wt 72.6 kg
[~2024-12-26 16:30] MED LIST changes: +DIPHENHYDRAMINE25 MG PO; +HYDROXYZINE HCL10 MG PO
[2024-12-26 16:38] VITALS: TEMP 98.3
[2024-12-26 18:09] LABS: INR 0.87
[2024-12-26 18:13] LABS: EST GLOMERULAR FILTRATION RATE 87.0 ML/MIN (>=60)
[2024-12-26] MEDS ORDERED: NITROGLYCERIN 0.4 MG SUBL SL PRN (18:45)
[2024-12-26] MEDS ORDERED: ONDANSETRON HCL INJ 2MG/ML 2ML 2 MG/ML VIAL IV PRN (18:45)
[2024-12-26] MEDS ORDERED: Morphine 2mg Syringe 2 MG/ML SYR IV PRN (18:45)
[2024-12-26 19:12] LABS: BASOPHILS % 0.6 % (0.0-1.0); EOSINOPHILS % 0.8 % (0.0-6.0); LYMPHOCYTES % 24.8 % (18.0-39.1); MONOCYTES % 6.4 % (4.4-11.3); NEUTROPHILS % 67.0 % (38.7-80.0); RED CELL DISTRIBUTION WIDTH 12.9 % (11.7-14.4)
[2024-12-26 20:04] VITALS: PULSE 76; RESP 17
[2024-12-26 20:34] VITALS: BP 149/72; PULSE 70; RESP 18; TEMP 97.6; O2SAT 100
[2024-12-26 21:40] VITALS: BP 149/72; PULSE 70; RESP 18; TEMP 97.6; O2SAT 100
[2024-12-26 23:03] VITALS: BP 130/62; PULSE 80; RESP 18; TEMP 97.3; O2SAT 100
[2024-12-27 06:40] LABS: BASOPHILS % 0.4 % (0.0-1.0); EOSINOPHILS % 1.5 % (0.0-6.0); LYMPHOCYTES % 28.8 % (18.0-39.1); MONOCYTES % 7.4 % (4.4-11.3); NEUTROPHILS % 61.7 % (38.7-80.0); RED CELL DISTRIBUTION WIDTH 12.7 % (11.7-14.4)
[2024-12-27] MEDS ORDERED: SERTRALINE HCL50 MG PO (06:47)
[2024-12-27] MEDS ORDERED: KLOR-CON 88 MEQ PO (06:47)
[2024-12-27] MEDS ORDERED: MEGESTROL ACETA40 MG PO (06:47)
[2024-12-27] MEDS ORDERED: LANTUS 3ML100 UNITS/ SQ (06:47)
[2024-12-27] MEDS ORDERED: MIRTAZAPINE15 MG PO (06:47)
[2024-12-27] MEDS ORDERED: ROSUVASTATIN CA20 MG PO (06:47)
[2024-12-27] MEDS ORDERED: MAGNESIUM OXID400 M1 PO (06:47)
[2024-12-27 07:21] LABS: CHOL/HDL RATIO 3.2 (3.0-3.6); EST GLOMERULAR FILTRATION RATE 95.0 ML/MIN (>=60); LDL CHOLESTEROL 70.0 MG/DL (60-130)
[2024-12-27 07:30] VITALS: BP 160/80; PULSE 68; RESP 18; TEMP 98.4; O2SAT 100
[2024-12-27] MEDS: ASPIRIN 81 MG ENTERIC COATED PO SCH (09:00)
[2024-12-27] MEDS: CLOPIDOGREL BISULFATE 75 MG TAB PO SCH (09:00)
[2024-12-27 09:20] VITALS: BP 160/80; PULSE 68; RESP 18; TEMP 98.4; O2SAT 100
== END 2024-12-27 09:05 | disposition left against medical advice (07) ==
LOC: ER 17:02 → ERHOLD 18:31 → MED/SURG3 21:28
PROVIDERS: ADMIT Internal Medicine; ATTEND Internal Medicine
DX: R07.89 Other chest pain (principal); E11.9 Type 2 diabetes mellitus without complications; Z79.4 Long term (current) use of insulin; I10 Essential (primary) hypertension; F03.90 Unspecified dementia, unspecified severity, without behavioral disturbance, psychotic disturbance, mood disturbance, and anxiety; Z53.29 Procedure and treatment not carried out because of patient's decision for other reasons
CPT/HCPCS: 36415 ×2; 71045; 80053 ×2; 80061; 82550; 83735; 84484 ×2; 85025 ×2; 85610; 85730; 93005; 99284; G0378 ×2

== ENCOUNTER 2025-02-08 16:32 | Emergency (ER) | payer MEDICARE, BC ==
[~2025-02-08] VITALS: Ht 157.5 cm; Wt 72.6 kg
[~2025-02-08 16:32] MED LIST changes: +KLOR-CON 88 MEQ PO; +LANTUS 3ML100 UNITS/ SQ; +MAGNESIUM OXID400 M1 PO; +MEGESTROL ACETA40 MG PO; +MIRTAZAPINE15 MG PO; +ROSUVASTATIN CA20 MG PO; +SERTRALINE HCL50 MG PO
[2025-02-08 16:40] VITALS: TEMP 98.5
[2025-02-08 17:58] LABS: BASOPHILS % 0.3 % (0.0-1.0); EOSINOPHILS % 0.5 % (0.0-6.0); LYMPHOCYTES % 15.3 % (18.0-39.1); MONOCYTES % 11.8 % (4.4-11.3); NEUTROPHILS % 71.8 % (38.7-80.0); RED CELL DISTRIBUTION WIDTH 12.7 % (11.7-14.4)
[2025-02-08 18:13] LABS: EST GLOMERULAR FILTRATION RATE 96 ML/MIN (>=60)
[2025-02-08 18:19] LABS: LEUKOCYTE ESTERASE ,URINE LARGE (NEGATIVE); PROTEIN,URINE DIPSTICK >=300 (NEGATIVE); URINE UROBILINOGEN >=8 mg/dL (0.2 - 1)
[2025-02-08 18:29] LABS: EPITHELIAL CELLS,URINE RARE /LPF
[2025-02-08 19:54] LABS: CORONAVIRUS COVID-19 AG POSITIVE (NEGATIVE)
[2025-02-08] MEDS: SODIUM CHLORIDE 0.9% 1000ML 1,000 ML IV STA (20:29)
[2025-02-08 20:30] VITALS: PULSE 89; RESP 18
[2025-02-08] MEDS ORDERED: CEPHALEXIN500 MG PO (20:54)
[2025-02-08] MEDS ORDERED: PAXLOVID 300-11 EAC1 PO (20:54)
[2025-02-08 22:20] VITALS: BP 129/84; PULSE 78; RESP 18; TEMP 98.3; O2SAT 98
[2025-02-09] MEDS ORDERED: IOPAMIDOL 370 MG/ML 100 ML INFUS..BTL INJ ONE (05:44)
== END 2025-02-08 22:00 | disposition home or self-care (01) ==
LOC: ER 16:50
DX: M54.9 Dorsalgia, unspecified (principal); U07.1 COVID-19; N39.0 Urinary tract infection, site not specified; R10.9 Unspecified abdominal pain; I10 Essential (primary) hypertension; E11.65 Type 2 diabetes mellitus with hyperglycemia; K21.9 Gastro-esophageal reflux disease without esophagitis; F32.A Depression, unspecified; R94.31 Abnormal electrocardiogram [ECG] [EKG]; Z86.73 Personal history of transient ischemic attack (TIA), and cerebral infarction without residual deficits; Z85.818 Personal history of malignant neoplasm of other sites of lip, oral cavity, and pharynx
CPT/HCPCS: 36415; 71045; 74177; 80053; 81001; 82550; 83880; 84484; 85025; 87086; 87186; 87426; 93005; 99284; J7030; Q9967